=== PATIENT | female | born 1945 | race Caucasian/White ===

== ENCOUNTER → 2020-11-12 08:49 | Outpatient (CLI) | payer MEDICARE, SELFPAY ==
[2020-11-12] MEDS: COVID-19 VACC #1, MRNA(MOD) 100 MCG/0.5 ML VIAL IM (09:00)
== END ==
PROVIDERS: Family Provider Family Medicine; PCP Family Medicine; Visit Provider Internal Medicine
DX: Z23 Encounter for immunization (principal)
CPT/HCPCS: 0011A; 91301

== ENCOUNTER → 2020-12-10 08:55 | Outpatient (CLI) | payer MEDICARE, SELFPAY ==
[2020-12-10] MEDS: COVID-19 VACC #2, MRNA(MOD) 100 MCG/0.5 ML VIAL IM (09:02)
== END ==
PROVIDERS: PCP Family Medicine; Visit Provider Internal Medicine
DX: Z23 Encounter for immunization (principal)
CPT/HCPCS: 0012A; 91301

== ENCOUNTER → 2020-12-23 09:33 | Outpatient (CLI) | payer OTHER, SELFPAY ==
[2020-12-23 10:55] LABS: BUN Creatinine Ratio 15.4 (6-22); Blood Urea Nitrogen 19 mg/dL (7-17); Carbon Dioxide 27 mmol/L (22-32); Chloride 102 mmol/L (98-107); Estimated Glomerular Filt Rate 42.5 mL/min (>60); Glucose 96 mg/dL (80-110); HEMOLYSIS < 15 (0-50); Sodium 136 mmol/L (137-145)
[2020-12-23 10:59] LABS: Potassium 5.4 mmol/L (3.4-5.1)
== END ==
PROVIDERS: Referring Provider Physician Assistant; Visit Provider Physician Assistant
DX: I25.5 Ischemic cardiomyopathy (principal)
CPT/HCPCS: 36415; 80048

== ENCOUNTER → 2021-01-09 08:14 | Outpatient (CLI) | payer OTHER, SELFPAY ==
[2021-01-09 09:07] LABS: BUN Creatinine Ratio 15.9 (6-22); Blood Urea Nitrogen 20 mg/dL (7-17); Calcium 10.1 mg/dL (8.4-10.2); Carbon Dioxide 24 mmol/L (22-32); Chloride 102 mmol/L (98-107); Estimated Glomerular Filt Rate 41.3 mL/min (>60); Glucose 100 mg/dL (80-110); HEMOLYSIS < 15 (0-50); Sodium 136 mmol/L (137-145)
== END ==
PROVIDERS: Referring Provider Physician Assistant; Visit Provider Physician Assistant
DX: I25.5 Ischemic cardiomyopathy (principal)
CPT/HCPCS: 36415; 80048

== ENCOUNTER 2021-05-14 10:30 | Outpatient (RCR) | payer OTHER, SELFPAY | END 2021-05-14 12:30 | LOC: CAR 10:30 | PROVIDERS: Referring Provider Internal Medicine Interventional Cardiology; Visit Provider Internal Medicine Interventional Cardiology | DX: I50.22 Chronic systolic (congestive) heart failure (principal) | CPT/HCPCS: 93798 ==

== ENCOUNTER → 2021-05-18 09:53 | Outpatient (CLI) | payer OTHER, SELFPAY ==
[2021-05-18 10:31] LABS: Hemoglobin 13.4 g/dL (12.0-16.0); Mean Corpuscular HGB Conc 33.6 % (30-36); Mean Corpuscular Hemoglobin 28.5 PG (26-34); Mean Corpuscular Volume 84.9 fL (80-100); Platelet Count 204 X10^3/uL (150-400); Red Blood Cell Count 4.71 X10^6/uL (4.0-5.2); Red Cell Distribution Width 14.9 % (11.6-14.8); White Blood Cell Count 9.4 X10^3/uL (4.5-11.0)
[2021-05-18 10:42] LABS: Alanine Aminotransferase 16 IU/L (<35); Albumin 4.1 g/dL (3.5-5.0); Albumin Globulin Ratio 1.3 (1.0-2.8); Alkaline Phosphatase 133 U/L (38-126); Aspartate Aminotransferase 25 IU/L (14-36); BUN Creatinine Ratio 13.9 (6-22); Bilirubin Total 0.7 mg/dL (0.2-1.3); Blood Urea Nitrogen 16 mg/dL (7-17); Calcium 9.2 mg/dL (8.4-10.2); Carbon Dioxide 23 mmol/L (22-32); Chloride 106 mmol/L (98-107); Estimated Glomerular Filt Rate 45.8 mL/min (>60); Globulin 3.2 g/dL (1.7-4.1); Glucose 125 mg/dL (80-110); HEMOLYSIS < 15 (0-50); Potassium 4.1 mmol/L (3.4-5.1); Sodium 135 mmol/L (137-145); Total Protein 7.3 g/dL (6.3-8.2)
[2021-05-18 10:51] LABS: NT-proBNP (BNP-Adult 18+) 630 pg/mL (<450)
[2021-05-18 11:12] LABS: HEMOLYSIS < 15 (0-50); Iron 58 ug/dL (37-170)
[2021-05-18 11:17] LABS: Ferritin 21 ng/mL (11-264)
[2021-05-18 11:26] LABS: Percent Iron Saturation 21 % (15-50); Total Iron Binding Capacity 278 ug/dL (265-497); Transferrin 225 mg/dL (206-381)
[2021-05-18 11:31] LABS: Free T4, Direct Thyroxine 1.11 ng/dL (0.78-2.19)
[2021-05-18 11:44] LABS: Thyroid Stimulating Hormone 2.48 uIU/mL (0.47-4.68)
[2021-05-18 11:48] LABS: Folate 6.6 ng/mL (2.76-20.0); Vitamin B12 > 1000 pg/mL (239-931)
[2021-05-20 14:35] LABS: Immunoglobulin A, Serum 156 mg/dL (64-422); Immunoglobulin G,Serum 1361 mg/dL (586-1602); Immunoglobulin M, Serum 98 mg/dL (26-217)
== END ==
PROVIDERS: Referring Provider Internal Medicine Cardiovascular Disease; Visit Provider Internal Medicine Cardiovascular Disease
DX: R77.1 Abnormality of globulin (principal)
CPT/HCPCS: 36415; 80053; 82607; 82728; 82746; 82784; 83540; 83550; 83880; 84155; 84439; 84443; 85027; 86334

== ENCOUNTER 2021-06-18 17:09 | Emergency (ER) | payer OTHER, SELFPAY ==
[2021-06-18] VITALS (14 sets, daily range): BP systolic 140–191; BP diastolic 71–104; PULSE 65–101; RESP 14–35; TEMP 36.4; O2SAT 93–98; BMI 28.1
--- NOTE | 2021-06-18 17:14 | DI.RAD.S_ITS ---
PROCEDURE: XR CHEST 1V INDICATIONS: chest pain TECHNIQUE: One view of the chest was acquired. COMPARISON: [facility], , CHEST 2 VIEW, 12/19/2006, 10:58. FINDINGS: Surgical changes and devices: An AICD is seen. Left upper abdominal clips are seen. Coronary artery stents are faintly seen. Lungs and pleura: Lungs are clear. No pleural effusions or pneumothorax. Mediastinum: The cardiac contours are within normal limits. The aorta demonstrates calcification and tortuosity. Bones and chest wall: No suspicious bony lesions. Age-appropriate bony degenerative changes are seen. Overlying soft tissues appear unremarkable. IMPRESSION: No acute cardiopulmonary process is seen. Postoperative and degenerative changes are seen. Dictated by: Candido Tomas M.D. on 06/18/2021 at 16:57 Approved by: Candido Tomas M.D. on 06/18/2021 at 16:58
[2021-06-18 17:33] LABS: Add Manual Diff / Slide Review NO; Basophils Absolute Auto 100 /uL (0-100); Eosinophils Absolute Auto 600 /uL (0-450); Hemoglobin 12.8 g/dL (12.0-16.0); Lymphocytes Absolute Auto 2100 /uL (1100-4500); Lymphocytes Percent Auto 26.9 % (25-40); Mean Corpuscular HGB Conc 32.8 % (30-36); Mean Corpuscular Hemoglobin 27.5 PG (26-34); Mean Corpuscular Volume 83.9 fL (80-100); Monocytes Absolute Auto 1000 /uL (0-900); Monocytes Percent Auto 13.4 % (3-14); Neutrophils Absolute Auto 4000 /uL (1500-7000); Neutrophils Percent Auto 51.7 % (50-75); Platelet Count 218 X10^3/uL (150-400); Red Blood Cell Count 4.65 X10^6/uL (4.0-5.2); Red Cell Distribution Width 14.6 % (11.6-14.8); White Blood Cell Count 7.8 X10^3/uL (4.5-11.0)
[2021-06-18 17:41] LABS: Prothrombin Time 11.1 SECONDS (10.1-12.7)
[2021-06-18 17:44] LABS: PTT Partial Thromboplastin Tim 34 SECONDS (26.4-36.2)
[2021-06-18 17:45] LABS: Alanine Aminotransferase 64 IU/L (<35); Albumin 4.2 g/dL (3.5-5.0); Albumin Globulin Ratio 1.2 (1.0-2.8); Alkaline Phosphatase 146 U/L (38-126); Aspartate Aminotransferase 73 IU/L (14-36); BUN Creatinine Ratio 14.4 (6-22); Bilirubin Total 0.5 mg/dL (0.2-1.3); Blood Urea Nitrogen 17 mg/dL (7-17); Calcium 9.3 mg/dL (8.4-10.2); Carbon Dioxide 25 mmol/L (22-32); Chloride 104 mmol/L (98-107); Creatine Kinase 39 U/L (30-135); Estimated Glomerular Filt Rate 44.4 mL/min (>60); Globulin 3.5 g/dL (1.7-4.1); Glucose 99 mg/dL (80-110); HEMOLYSIS < 15 (0-50); Lipase 171 U/L (23-300); Sodium 137 mmol/L (137-145); Total Protein 7.7 g/dL (6.3-8.2)
[2021-06-18 17:57] LABS: NT-proBNP (BNP-Adult 18+) 1050 pg/mL (<450); Troponin I < 0.012 ng/mL (0.01-0.034)
[2021-06-18] MEDS: SODIUM CHLORIDE 0.9% 1,000 ML 150 ML IV (18:03)
--- NOTE | 2021-06-18 18:08 | ED.ARRPALP ---
HPI - Arrhythmia/Palpitations General Chief Complaint: Arrhythmia/Palpitations Stated Complaint: Cyanotic Time Seen by Provider: 06/18/21 17:45 History of Present Illness HPI narrative: 76-year-old female nonsmoker with history of coronary artery disease and multiple stents as well as the placement of a pacemaker about 1 month ago presents after an episode of dizziness and lightheaded which happened earlier tonight. She had been in her normal state of health until this afternoon when she stood up and went to the bathroom and felt dizzy, flushed, nauseated and perhaps a bit sweaty. Her symptoms lasted upwards of 10 minutes or so. She denies any chest pain or palpitations. She has had no nausea or vomiting. She denies any diarrhea. She denies any specific medication or dietary change. She feels much better on arrival here. Related Data Home Medications Medication Instructions Recorded Confirmed aspirin 81 mg tablet,delayed 81 mg PO DAILY 06/18/21 06/18/21 release atorvastatin 80 mg tablet 80 mg PO BEDTIME 06/18/21 06/18/21 carvedilol 25 mg tablet 25 mg PO BID 06/18/21 06/18/21 cholecalciferol (vitamin D3) 50 50 mcg PO DAILY 06/18/21 06/18/21 mcg (2,000 unit) capsule clopidogrel 75 mg tablet 75 mg PO DAILY 06/18/21 06/18/21 irbesartan 75 mg tablet 37.5 mg PO DAILY 06/18/21 06/18/21 nitroglycerin 0.4 mg sublingual 0.4 mg SUBLINGUAL PRN PRN 06/18/21 06/18/21 tablet nortriptyline 10 mg capsule 10 mg PO DAILY 06/18/21 06/18/21 pantoprazole 40 mg tablet,delayed 40 mg PO DAILY 06/18/21 06/18/21 release (Protonix) paroxetine HCl 10 mg tablet 10 mg PO DAILY 06/18/21 06/18/21 Allergies Allergy/AdvReac Type Severity Reaction Status Date / Time IBUPROFEN Allergy Severe HIVES Uncoded 11/16/17 13:11 Review of Systems Review of Systems Narrative: GENERAL: See HPI HEENT: Denies sinus pain, ear pain, sore throat, difficulty swallowing, dizziness. RESPIRATORY: See HPI CARDIOVASCULAR: See HPI, GASTROINTESTINAL: Denies nausea, vomiting, abdominal pain, diarrhea, constipation, melena. : Denies dysuria, frequency, incontinence, hematuria, urinary retention. MUSCULOSKELETAL: denies weakness, joint pain, or bony pain SKIN: Denies rash, skin lesions, or other NEUROLOGIC: Denies weakness, headache, numbness, change in speech, confusion, seizures, incoordination. PSYCHIATRIC: No concerning psychosocial issues. 12 point review of systems is negative except for those stated above Exam Narrative Exam Narrative: GENERAL: [76] year old patient appears stated age. Well-developed patient, in mild distress. HEAD: Atraumatic. Normocephalic. EYES: Pupils equal round and reactive. Extraocular motions intact. No scleral icterus. No injection or drainage. ENT: Nose without bleeding, purulent drainage. Throat without erythema, tonsillar hypertrophy or exudate. Airway patent. NECK: Trachea midline. Non tender CARDIOVASCULAR: Regular rate and rhythm without murmurs, gallops, or rubs. Left anterior chest incision is clean, dry and intact with no signs of erythema, warmth, tenderness, induration, fluctuance or signs of infection RESPIRATORY: Clear to auscultation. Breath sounds equal bilaterally. No wheezes, rales, or rhonchi. GASTROINTESTINAL: Abdomen soft, non-tender, nondistended. EXTREMITIES: No edema or joint tenderness. BACK: Nontender without deformity or crepitance. No flank tenderness. NEURO: AOx3. SKIN: No rash or erythema of visible areas Initial Vital Signs Initial Vital Signs: Vital Signs Temperature 97.5 F L 06/18/21 17:19 Pulse Rate 68 06/18/21 17:19 Respiratory Rate 16 06/18/21 17:19 Blood Pressure 191/104 H 06/18/21 17:19 Pulse Oximetry 98 06/18/21 17:19 Course Course Course Narrative: Pacemaker interrogated and no abnormal rates noted Orders Ordered: ED Orders 06/18/21 17:14 XR chest 1V Stat EKG-12 Lead Stat 06/18/21 17:24 Complete Blood Count AUTO DIFF Stat Comprehensive Metabolic Panel Stat Lipase Stat NT-proBNP (BNP-Adult 18+) Stat Partial Thromboplastin Time Stat Prothrombin Time INR Stat Troponin & CK Cardiac Panel Stat 06/18/21 19:27 CT angio chest PE protocol Stat 06/18/21 19:50 Troponin & CK Cardiac Panel Stat Discontinued Medications Sodium Chloride (Normal Saline 0.9%) 1,000 mls @ 150 mls/hr IV CONT TAMMY Last Admin: 06/18/21 18:03 Dose: 150 mls/hr Documented by: LLOYD Reevaluation(s) Reevaluation #1: Patient continued to feel largely asymptomatic, she is ambulating to and from the bathroom, she denies dizziness or lightheadedness. She is no longer flushed or nauseated Vital Signs Vital signs: Vital Signs - 8 hr 06/18/21 19:00 06/18/21 19:30 06/18/21 20:00 Pulse Rate 65 68 71 Pulse Rate [Orthostatic Lying] Pulse Rate [Orthostatic Sitting] Pulse Rate [Orthostatic Standing] Respiratory Rate 21 17 14 Blood Pressure 145/72 H 148/71 H Blood Pressure [Orthostatic Lying] Blood Pressure [Orthostatic Sitting] Blood Pressure [Orthostatic Standing] Pulse Oximetry 94 95 97 06/18/21 20:30 06/18/21 20:52 06/18/21 20:53 Pulse Rate 71 74 77 Pulse Rate [Orthostatic Lying] Pulse Rate [Orthostatic Sitting] Pulse Rate [Orthostatic Standing] Respiratory Rate 16 35 H 32 H Blood Pressure 156/72 H 144/78 H Blood Pressure [Orthostatic Lying] Blood Pressure [Orthostatic Sitting] Blood Pressure [Orthostatic Standing] Pulse Oximetry 96 97 96 06/18/21 20:54 06/18/21 20:57 06/18/21 21:00 Pulse Rate 77 101 H Pulse Rate [Orthostatic Lying] 71 Pulse Rate [Orthostatic Sitting] 78 Pulse Rate [Orthostatic Standing] 77 Respiratory Rate 21 Blood Pressure 140/75 Blood Pressure [Orthostatic Lying] 156/72 H Blood Pressure [Orthostatic Sitting] 144/78 H Blood Pressure [Orthostatic Standing] 140/75 Pulse Oximetry 97 93 06/18/21 21:02 06/18/21 21:20 06/18/21 21:22 Pulse Rate 88 70 Pulse Rate [Orthostatic Lying] Pulse Rate [Orthostatic Sitting] Pulse Rate [Orthostatic Standing] Respiratory Rate Blood Pressure 143/86 H Blood Pressure [Orthostatic Lying] Blood Pressure [Orthostatic Sitting] Blood Pressure [Orthostatic Standing] Pulse Oximetry 96 96 MDM - Arrhythmia/Palpitations Lab Data Result diagrams: 06/18/21 17:24 06/18/21 17:24 Labs: Lab Results 06/18/21 06/18/21 06/18/21 Range/Units 17:24 17:24 17:24 WBC 7.8 (4.5-11.0) X10^3/uL RBC 4.65 (4.0-5.2) X10^6/uL Hgb 12.8 (12.0-16.0) g/dL Hct 39.0 (36-46) % MCV 83.9 (80-100) fL MCH 27.5 (26-34) PG MCHC 32.8 (30-36) % RDW 14.6 (11.6-14.8) % Plt Count 218 (150-400) X10^3/uL Neut % (Auto) 51.7 (50-75) % Lymph % (Auto) 26.9 (25-40) % Roberts % (Auto) 13.4 (3-14) % Eos % (Auto) 7.0 H (2-4) % Baso % (Auto) 1.0 (0-2) % Neut # (Auto) 4000 (0826-0736) /uL Lymph # (Auto) 2100 (2967-7522) /uL Roberts # (Auto) 1000 H (0-900) /uL Eos # (Auto) 600 H (0-450) /uL Baso # (Auto) 100 (0-100) /uL PT 11.1 (10.1-12.7) SECONDS INR 1.0 (0.9-1.3) APTT 34 (26.4-36.2) SECONDS Sodium 137 (137-145) mmol/L Potassium 4.0 (3.4-5.1) mmol/L Chloride 104 (98-107) mmol/L Carbon Dioxide 25 (22-32) mmol/L BUN 17 (7-17) mg/dL Creatinine 1.18 H (0.52-1.04) mg/dL Estimated GFR 44.4 L (>60) mL/min BUN/Creatinine Ratio 14.4 (6-22) Glucose 99 (80-110) mg/dL Calcium 9.3 (8.4-10.2) mg/dL Total Bilirubin 0.5 (0.2-1.3) mg/dL AST 73 H (14-36) IU/L ALT 64 H (<35) IU/L Alkaline Phosphatase 146 H (38-126) U/L Total Creatine Kinase 39 (30-135) U/L CK-MB (CK-2) TNP CK-MB (CK-2) Rel Index TNP Troponin I < 0.012 (0.01-0.034) ng/mL NT-Pro-B Natriuret Pep 1050 H (<450) pg/mL Total Protein 7.7 (6.3-8.2) g/dL Albumin 4.2 (3.5-5.0) g/dL Globulin 3.5 (1.7-4.1) g/dL Albumin/Globulin Ratio 1.2 (1.0-2.8) Lipase 171 (23-300) U/L 06/18/21 Range/Units 19:50 WBC (4.5-11.0) X10^3/uL RBC (4.0-5.2) X10^6/uL Hgb (12.0-16.0) g/dL Hct (36-46) % MCV (80-100) fL MCH (26-34) PG MCHC (30-36) % RDW (11.6-14.8) % Plt Count (150-400) X10^3/uL Neut % (Auto) (50-75) % Lymph % (Auto) (25-40) % Roberts % (Auto) (3-14) % Eos % (Auto) (2-4) % Baso % (Auto) (0-2) % Neut # (Auto) (9773-6501) /uL Lymph # (Auto) (6067-0279) /uL Roberts # (Auto) (0-900) /uL Eos # (Auto) (0-450) /uL Baso # (Auto) (0-100) /uL PT (10.1-12.7) SECONDS INR (0.9-1.3) APTT (26.4-36.2) SECONDS Sodium (137-145) mmol/L Potassium (3.4-5.1) mmol/L Chloride (98-107) mmol/L Carbon Dioxide (22-32) mmol/L BUN (7-17) mg/dL Creatinine (0.52-1.04) mg/dL Estimated GFR (>60) mL/min BUN/Creatinine Ratio (6-22) Glucose (80-110) mg/dL Calcium (8.4-10.2) mg/dL Total Bilirubin (0.2-1.3) mg/dL AST (14-36) IU/L ALT (<35) IU/L Alkaline Phosphatase (38-126) U/L Total Creatine Kinase 32 (30-135) U/L CK-MB (CK-2) TNP CK-MB (CK-2) Rel Index TNP Troponin I < 0.012 (0.01-0.034) ng/mL NT-Pro-B Natriuret Pep (<450) pg/mL Total Protein (6.3-8.2) g/dL Albumin (3.5-5.0) g/dL Globulin (1.7-4.1) g/dL Albumin/Globulin Ratio (1.0-2.8) Lipase (23-300) U/L Imaging Data CT scan - chest: Radiologist's Impresson: [address] [id number] Scan ReportSigned Patient: Maci Shields LMR#: [id number]: 4Acct:[id number]/Sex: 76 / FDate of Service: 06/18/21Loc: EDAccession Number: [id number] Procedure: CT angio chest PE protocol Ordering Provider: Geroge Koehler D.O. PROCEDURE: CT ANGIO CHEST PE PROTOCOL INDICATIONS: near syncope, recent cardiac procedure TECHNIQUE: After the administration of intravenous contrast, 2 mm thick sections acquired from the pulmonary apices to the posterior costophrenic angles. 3-dimensional maximum intensity projection (MIP) coronal and sagittal reformats were then acquired through the thorax. For radiation dose reduction, the following was used: automated exposure control, adjustment of mA and/or kV according to patient size. COMPARISON: None. FINDINGS: Lungs: Scattered subsegmental atelectasis and/or scarring. No focal consolidation. Airway thickening in keeping with nonspecific bronchitis and/or reactive airways disease. Pleura: No pleural effusion or pneumothorax. Heart: Enlarged. No pericardial effusion. Coronary atherosclerosis. Chest nodes: Normal. Thyroid gland: Unremarkable Aorta: Normal in size. Pulmonary arteries: No intraluminal filling defects identified. Esophagus: Normal. Upper abdomen and chest wall: No significant findings. Bones: No compression fracture. Diffuse spondylitic changes and facet arthropathy. IMPRESSION: No evidence of pulmonary embolism. No aortic dissection identified. Scattered subsegmental atelectasis and/or scarring. No focal consolidation. Dictated by: Abdelrahman Montez M.D. on 06/18/2021 at 20:14 Approved by: Abdelrahman Montez M.D. on 06/18/2021 at 20:18 ECG Data Interpretation: Sinus rhythm, no signs of ectopy. No ST segmental elevation or depression. MDM Narrative Medical decision making narrative: Patient had episode of near-syncope after changing position earlier tonight, symptoms resolved prior to her arrival. No evidence of ischemia, EKG is nonocclusive and multiple troponins are negative. Other considerations include dehydration, electrolyte abnormality. CT angiogram ordered given increased risk of pulmonary embolism after recent interventions and hospitalization as well as evaluation of potential vascular injury as a consequence of her pacemaker placement. No pericardial effusion or other abnormality noted. Patient given return precautions and questions have been answered to her apparent satisfaction Discharge Plan Departure Patient Disposition: Home Clinical Impression: Near syncope Instructions: DI for Syncope in Adults (Fainting) Activity Restrictions/Additional Instructions: *You have been diagnosed with [near syncope. Your history, physical exam, labs and CT scan are very reassuring. There is no evidence of heart attack, abnormality with your pacemaker, blood clot or other concerning symptoms that we discussed. *What to do: *Please continue to take your regular medications as directed. [ ] New medication prescriptions sent to your pharmacy: [ ] [ ] New medication written as a paper prescription [x ] No new medications given *Please follow up with your primary care provider in 2-3 days, call for an appointment. Let them know you were seen in the Emergency Department and that we ask that you be seen in follow up. We will electronically transmit a record of today's note if your PCP is in our system *If you do not have a primary care provider please contact the [facility] Resource line at [phone]. They will ask some questions about your medical history and help get you set up with a doctor in the community. *Return to Emergency Department if you should have any new, worsening or concerning symptoms, such as [fever greater than 101 F, shaking chills, worsening pain, persistent vomiting or other bothersome symptoms] Prescriptions: No Action atorvastatin 80 mg tablet 80 mg PO BEDTIME RF: 0 carvedilol 25 mg Tablet 25 mg PO BID RF: 0 paroxetine HCl 10 mg Tablet 10 mg PO DAILY RF: 0 clopidogrel 75 mg Tablet 75 mg PO DAILY RF: 0 aspirin [Aspir-81] 81 mg Tablet,Delayed Release (Dr/Ec) 81 mg PO DAILY RF: 0 pantoprazole [Protonix] 40 mg Tablet,Delayed Release (Dr/Ec) 40 mg PO DAILY RF: 0 nortriptyline 10 mg Capsule 10 mg PO DAILY RF: 0 nitroglycerin 0.4 mg Tablet, Sublingual 0.4 mg sublingual PRN PRN (Reason: Chest Pain) RF: 0 irbesartan 75 mg Tablet 37.5 mg PO DAILY RF: 0 cholecalciferol (vitamin D3) 50 mcg (2,000 unit) Capsule 50 mcg PO DAILY RF: 0 Referrals: JEFFERSON JOHNSON [Other]
--- NOTE | 2021-06-18 19:05 | PC.NURSE ---
interrogated pacemaker.
--- NOTE | 2021-06-18 19:08 | PC.NURSE ---
pt states that all of a sudden she got diaphoretic, cyanotic lips. light headed and dizzy. daughter was with patient. pt had a recent defib placement. reports it is her 3rd defib.. steri strips in place over defib site.
--- NOTE | 2021-06-18 19:27 | DI.CT.S_ITS ---
PROCEDURE: CT ANGIO CHEST PE PROTOCOL INDICATIONS: near syncope, recent cardiac procedure TECHNIQUE: After the administration of intravenous contrast, 2 mm thick sections acquired from the pulmonary apices to the posterior costophrenic angles. 3-dimensional maximum intensity projection (MIP) coronal and sagittal reformats were then acquired through the thorax. For radiation dose reduction, the following was used: automated exposure control, adjustment of mA and/or kV according to patient size. COMPARISON: None. FINDINGS: Lungs: Scattered subsegmental atelectasis and/or scarring. No focal consolidation. Airway thickening in keeping with nonspecific bronchitis and/or reactive airways disease. Pleura: No pleural effusion or pneumothorax. Heart: Enlarged. No pericardial effusion. Coronary atherosclerosis. Chest nodes: Normal. Thyroid gland: Unremarkable Aorta: Normal in size. Pulmonary arteries: No intraluminal filling defects identified. Esophagus: Normal. Upper abdomen and chest wall: No significant findings. Bones: No compression fracture. Diffuse spondylitic changes and facet arthropathy. IMPRESSION: No evidence of pulmonary embolism. No aortic dissection identified. Scattered subsegmental atelectasis and/or scarring. No focal consolidation. Dictated by: Abdelrahman Montez M.D. on 06/18/2021 at 20:14 Approved by: Abdelrahman Montez M.D. on 06/18/2021 at 20:18
[2021-06-18 20:07] LABS: Creatine Kinase 32 U/L (30-135)
[2021-06-18 20:20] LABS: Troponin I < 0.012 ng/mL (0.01-0.034)
== END 2021-06-18 21:32 | disposition home or self-care (01) ==
PROVIDERS: Emergency Medicine; Emergency Provider Emergency Medicine
DX: R55 Syncope and collapse (principal); Z95.0 Presence of cardiac pacemaker
CPT/HCPCS: 36415; 71045; 71275; 80053; 82550; 83690; 83880; 84484; 85025; 85610; 85730; 93005; 93010; 99284; 99285; Q9967

== ENCOUNTER 2021-09-11 17:40 | Emergency (ER) | payer OTHER, SELFPAY ==
[2021-09-11 17:41] VITALS: BP 175/100; PULSE 75; RESP 23; TEMP 35.5; O2SAT 96; BMI 27.9
--- NOTE | 2021-09-11 17:46 | DI.RAD.S_ITS ---
PROCEDURE: XR CHEST 1V INDICATIONS: chest pain TECHNIQUE: One view of the chest was acquired. COMPARISON: [facility], CR, XR CHEST 1V, 06/18/2021, 17:40. FINDINGS: Surgical changes and devices: Left dual-chamber pacemaker/defibrillator present. Lungs and pleura: Lungs are clear. No pleural effusions or pneumothorax. Mediastinum: Heart size is enlarged. No vascular congestion present. Coronary artery vascular stents noted. Bones and chest wall: No suspicious bony lesions. Overlying soft tissues appear unremarkable. IMPRESSION: Cardiomegaly without vascular congestion. Approved by: Jose L Matos M.D. on 09/11/2021 at 17:34
[2021-09-11] MEDS: ASPIRIN 81 MG CHEW TAB 324 MG PO (17:57)
[2021-09-11] MEDS: NITROGLYCERIN 0.4 MG SL TAB SL ×2 (18:01→18:06)
--- NOTE | 2021-09-11 18:02 | ED_ITS ---
HPI - Chest Pain General Chief Complaint: Chest Pain Stated Complaint: Possible Heart Attack Time Seen by Provider: 09/11/21 17:53 Mode of arrival: Wheelchair Limitations: no limitations History of Present Illness HPI narrative: Patient is a 76-year-old female who has history of coronary artery disease least 12 stents hyperlipidemia hypertension presenting today with diaphoresis and chest pressure similar to her previous MIs. She said yesterday in cardiac rehab she did not feel great and noted that her blood pressure was high. She took blood pressure medication today and monitor did today blood pressure was controlled however she got up to go to dinner she had extremely diaphoretic and feeling chest pressure. She says it is nonradiating but does feel some tingling down her legs. She took 1 nitro at home it does seem to help. She does have some EKG changes noted in anterior leads. She is followed by Dr. Hampton cardiology with [facility]. Related Data Home Medications Medication Instructions Recorded Confirmed aspirin 81 mg tablet,delayed 81 mg PO DAILY 06/18/21 06/18/21 release atorvastatin 80 mg tablet 80 mg PO BEDTIME 06/18/21 06/18/21 carvedilol 25 mg tablet 25 mg PO BID 06/18/21 06/18/21 cholecalciferol (vitamin D3) 50 50 mcg PO DAILY 06/18/21 06/18/21 mcg (2,000 unit) capsule clopidogrel 75 mg tablet 75 mg PO DAILY 06/18/21 06/18/21 irbesartan 75 mg tablet 37.5 mg PO DAILY 06/18/21 06/18/21 nitroglycerin 0.4 mg sublingual 0.4 mg SUBLINGUAL PRN PRN 06/18/21 06/18/21 tablet nortriptyline 10 mg capsule 10 mg PO DAILY 06/18/21 06/18/21 pantoprazole 40 mg tablet,delayed 40 mg PO DAILY 06/18/21 06/18/21 release (Protonix) paroxetine HCl 10 mg tablet 10 mg PO DAILY 06/18/21 06/18/21 Allergies Allergy/AdvReac Type Severity Reaction Status Date / Time IBUPROFEN Allergy Severe HIVES Uncoded 11/16/17 13:11 Review of Systems Review of Systems Narrative: GENERAL: Denies chills, fatigue, malaise, fever, sweats, travel HEENT: Denies sinus pain, ear pain, sore throat, difficulty swallowing, neck pain RESPIRATORY: Denies dyspnea, cough, wheezing, hemoptysis, sputum. CARDIOVASCULAR: See HPI GASTROINTESTINAL: Denies nausea, vomiting, abdominal pain, diarrhea, constipation, melena. : Denies dysuria, frequency, incontinence, hematuria, urinary retention, flank pain. MUSCULOSKELETAL: Denies weakness, joint pain, or bony pain SKIN: No rash, no erythema, no pruritus NEUROLOGIC: Denies weakness, dizziness, headache, numbness, change in speech, confusion PSYCHIATRIC: No concerning psychosocial issues. 12 point review of systems is negative except for those stated above and HPI Patient History Medical History (Updated 09/11/21 @ 23:42 by Shannon Erickson DO) Coronary artery disease Hyperlipidemia Hypertension Social History Smoking Status: Former smoker Smoking Status: Former smoker alcohol intake frequency: holidays/special occasions only Substance Use Type: marijuana Exam Initial Vital Signs Initial Vital Signs: Vital Signs Temperature 96 F L 09/11/21 17:41 Pulse Rate 75 09/11/21 17:41 Respiratory Rate 23 09/11/21 17:41 Blood Pressure 175/100 H 09/11/21 17:41 Pulse Oximetry 96 09/11/21 17:41 GENERAL: Alert 76-year-old female diaphoretic flushed appears uncomfortable HEENT: Head atraumatic,EOMI, pupils reactive, face symmetric, [moist] mucous m embranes CARDIOVASCULAR: Regular rate and rhythm without murmurs, rubs or gallops. RESPIRATORY: Breath sounds equal bilaterally, no wheezes rales or rhonchi. ABDOMEN: Soft, nontender. Normoactive bowel sounds all 4 quadrants. No guarding or rebound. EXTREMITIES: Normal range of motion, no clubbing or edema. Neurovascularly intact NEUROLOGICAL: Alert and oriented x4.Normal gait and speech. SKIN: Warm, dry, no laceration, no petechiae, no rashes or lesions. Course Orders Ordered: ED Orders 09/11/21 17:45 Complete Blood Count AUTO DIFF Stat Comprehensive Metabolic Panel Stat Lipase Stat Magnesium Stat PT [Prothrombin Time INR] Stat PTT [Partial Thromboplastin Time] Stat Troponin & CK Cardiac Panel Stat 09/11/21 17:46 XR chest 1V Stat EKG-12 Lead Routine 09/11/21 18:03 EKG-12 Lead Stat 09/11/21 18:13 COVID19 -Nasal swab/Pre-Proc Stat Discontinued Medications Aspirin (Aspirin 81 Mg Chew Tab) 324 mg PO NOW ONE Stop: 09/11/21 17:47 Last Admin: 09/11/21 17:57 Dose: 243 mg Documented by: MICHAEL Aspirin (Aspirin 81 Mg Chew Tab) 324 mg PO NOW ONE Stop: 09/11/21 17:54 Last Admin: 09/11/21 17:58 Dose: Not Given Documented by: MICHAEL Heparin Sodium (Porcine) (Heparin 5,000 Unit/Ml Vial) 4,000 unit IV NOW ONE Stop: 09/11/21 18:01 Last Admin: 09/11/21 18:04 Dose: 4,000 unit Documented by: MICHAEL Sodium Chloride (Normal Saline 0.9%) 1,000 mls @ 150 mls/hr IV CONT [facility] Last Infusion: 09/11/21 18:27 Dose: 0 mls/hr Documented by: Admin: 09/11/21 18:03 Dose: 150 mls/hr Documented by: MICHAEL Heparin Sodium/Dextrose (Heparin Drip) 25,000 unit in 500 mls @ 20 mls/hr IV CONT TAMMY; Protocol Last Titration: 09/11/21 18:27 Dose: 0 units/hr, 0 mls/hr Documented by: Admin: 09/11/21 18:05 Dose: 1,000 units/hr, 20 mls/hr Documented by: MICHAEL Metoprolol Tartrate (Metoprolol Tartrate 5 Mg/5 Ml Inj) 5 mg IV Q5M TAMMY Stop: 09/11/21 18:11 Last Admin: 09/11/21 18:27 Dose: Not Given Documented by: Admin: 09/11/21 18:27 Dose: Not Given Documented by: Admin: 09/11/21 18:07 Dose: 5 mg Documented by: MICHAEL Nitroglycerin (Nitroglycerin Oint 1 Inch/Gm Oint...G.) 1 inch TOP NOW ONE Stop: 09/11/21 17:54 Last Admin: 09/11/21 17:58 Dose: Not Given Documented by: MICHAEL Nitroglycerin (Nitroglycerin 0.4 Mg Sl Tab) 0.4 mg SL [id number] PRN PRN Reason: Chest Pain Last Admin: 09/11/21 18:06 Dose: 0.4 mg Documented by: Admin: 09/11/21 18:01 Dose: 0.4 mg Documented by: MICHAEL Vital Signs Vital signs: Vital Signs - 8 hr 09/11/21 17:41 09/11/21 18:07 09/11/21 18:10 Temperature 96 F L Pulse Rate 75 71 69 Respiratory Rate 23 20 19 Blood Pressure 175/100 H 152/89 H 137/71 Pulse Oximetry 96 93 94 09/11/21 18:13 09/11/21 18:16 Temperature 98.2 F Pulse Rate 62 61 Respiratory Rate 25 H 16 Blood Pressure 104/64 135/69 Pulse Oximetry 93 93 MDM - Chest Pain Lab Data Result diagrams: 09/11/21 17:45 09/11/21 17:45 Labs: Lab Results 09/11/21 09/11/21 09/11/21 Range/Units 17:45 17:45 17:45 WBC 11.7 H (4.5-11.0) X10^3/uL RBC 5.20 (4.0-5.2) X10^6/uL Hgb 13.6 (12.0-16.0) g/dL Hct 40.3 (36-46) % MCV 77.5 L (80-100) fL MCH 26.1 (26-34) PG MCHC 33.7 (30-36) % RDW 16.1 H (11.6-14.8) % Plt Count 264 (150-400) X10^3/uL Neut % (Auto) 47.7 L (50-75) % Lymph % (Auto) 32.7 (25-40) % Green % (Auto) 13.4 (3-14) % Eos % (Auto) 4.8 H (2-4) % Baso % (Auto) 1.4 (0-2) % Neut # (Auto) 5600 (3105-1661) /uL Lymph # (Auto) 3800 (4143-6438) /uL Green # (Auto) 1600 H (0-900) /uL Eos # (Auto) 600 H (0-450) /uL Baso # (Auto) 200 H (0-100) /uL PT 11.3 (10.1-12.7) SECONDS INR 1.0 (0.9-1.3) APTT 33 (26.4-36.2) SECONDS Sodium 135 L (137-145) mmol/L Potassium 4.1 (3.4-5.1) mmol/L Chloride 105 (98-107) mmol/L Carbon Dioxide 27 (22-32) mmol/L BUN 20 H (7-17) mg/dL Creatinine 1.02 (0.52-1.04) mg/dL Estimated GFR 52.5 L (>60) mL/min BUN/Creatinine Ratio 19.6 (6-22) Glucose 88 (80-110) mg/dL Calcium 9.9 (8.4-10.2) mg/dL Magnesium 1.9 (1.6-2.3) mg/dL Total Bilirubin 0.8 (0.2-1.3) mg/dL AST 28 (14-36) IU/L ALT 14 (<35) IU/L Alkaline Phosphatase 110 (38-126) U/L Total Creatine Kinase 38 (30-135) U/L CK-MB (CK-2) TNP CK-MB (CK-2) Rel Index TNP Troponin I < 0.012 (0.01-0.034) ng/mL Total Protein 7.8 (6.3-8.2) g/dL Albumin 4.1 (3.5-5.0) g/dL Globulin 3.7 (1.7-4.1) g/dL Albumin/Globulin Ratio 1.1 (1.0-2.8) Lipase 59 (23-300) U/L SARS-CoV-2 (PCR) (Negative) 09/11/21 Range/Units 18:13 WBC (4.5-11.0) X10^3/uL RBC (4.0-5.2) X10^6/uL Hgb (12.0-16.0) g/dL Hct (36-46) % MCV (80-100) fL MCH (26-34) PG MCHC (30-36) % RDW (11.6-14.8) % Plt Count (150-400) X10^3/uL Neut % (Auto) (50-75) % Lymph % (Auto) (25-40) % Green % (Auto) (3-14) % Eos % (Auto) (2-4) % Baso % (Auto) (0-2) % Neut # (Auto) (6312-5411) /uL Lymph # (Auto) (5803-9874) /uL Green # (Auto) (0-900) /uL Eos # (Auto) (0-450) /uL Baso # (Auto) (0-100) /uL PT (10.1-12.7) SECONDS INR (0.9-1.3) APTT (26.4-36.2) SECONDS Sodium (137-145) mmol/L Potassium (3.4-5.1) mmol/L Chloride (98-107) mmol/L Carbon Dioxide (22-32) mmol/L BUN (7-17) mg/dL Creatinine (0.52-1.04) mg/dL Estimated GFR (>60) mL/min BUN/Creatinine Ratio (6-22) Glucose (80-110) mg/dL Calcium (8.4-10.2) mg/dL Magnesium (1.6-2.3) mg/dL Total Bilirubin (0.2-1.3) mg/dL AST (14-36) IU/L ALT (<35) IU/L Alkaline Phosphatase (38-126) U/L Total Creatine Kinase (30-135) U/L CK-MB (CK-2) CK-MB (CK-2) Rel Index Troponin I (0.01-0.034) ng/mL Total Protein (6.3-8.2) g/dL Albumin (3.5-5.0) g/dL Globulin (1.7-4.1) g/dL Albumin/Globulin Ratio (1.0-2.8) Lipase (23-300) U/L SARS-CoV-2 (PCR) Negative (Negative) Point of Care Testing Glucose POC 62 Imaging Data Chest x-ray: Radiologist's Impression: PROCEDURE:? XR CHEST 1V ? INDICATIONS:? chest pain ? TECHNIQUE:? One view of the chest was acquired.? ? COMPARISON:? [facility], CR, XR CHEST 1V, 06/18/2021, 17:40. ? FINDINGS:? ? Surgical changes and devices:? Left dual-chamber pacemaker/defibrillator present. ? Lungs and pleura:? Lungs are clear.? No pleural effusions or pneumothorax.? ? Mediastinum:? Heart size is enlarged.? No vascular congestion present.? Coronary artery vascular stents noted. ? Bones and chest wall:? No suspicious bony lesions.? Overlying soft tissues appear unremarkable.? ? IMPRESSION:? ? Cardiomegaly without vascular congestion.? ? ? Approved by: Jose L Matos M.D. on 09/11/2021 at 17:34? ECG Data Interpretation: EKG 1. Sinus rhythm rate 70 [place] interval 204 QRS 138 QTC is 486 biphasic T-waves noted in V2 slight ST elevation this appears little different than previous EKG EKG 2. Improved ST changes MDM Narrative Medical decision making narrative: Patient's symptoms are concerning for [place] she has significant coronary artery disease. She received nitroglycerin aspirin heparin and 1 dose of metoprolol. Chest pressure improved with 1 dose of nitro she overall looks better. Dr. Alfaro ED physician at [facility] as an updated patient's symptoms test results indicate happy to accept patient not EKGs have been faxed COVID pending Discharge Plan Departure Patient Disposition: [facility] Clinical Impression: ST elevation myocardial infarction (STEMI) Prescriptions: No Action atorvastatin 80 mg tablet 80 mg PO BEDTIME 0RF Label Comments: take 1 tablet by mouth every evening carvedilol 25 mg Tablet 25 mg PO BID 0RF paroxetine HCl 10 mg Tablet 10 mg PO DAILY 0RF clopidogrel 75 mg Tablet 75 mg PO DAILY 0RF aspirin [Aspir-81] 81 mg Tablet,Delayed Release (Dr/Ec) 81 mg PO DAILY 0RF pantoprazole [Protonix] 40 mg Tablet,Delayed Release (Dr/Ec) 40 mg PO DAILY 0RF nortriptyline 10 mg Capsule 10 mg PO DAILY 0RF nitroglycerin 0.4 mg Tablet, Sublingual 0.4 mg sublingual PRN PRN (Reason: Chest Pain) 0RF irbesartan 75 mg Tablet 37.5 mg PO DAILY 0RF Rx Instructions: take 1/2 tab PO QD cholecalciferol (vitamin D3) 50 mcg (2,000 unit) Capsule 50 mcg PO DAILY 0RF Referrals: Princess Bae MD [Primary Care Provider] - Jimmy Hollis MD [Non-Staff] -
[2021-09-11] MEDS: SODIUM CHLORIDE 0.9% 1,000 ML 150 ML IV (18:03)
[2021-09-11] MEDS: HEPARIN 5,000 UNIT/ML VIAL 4000 UNIT IV (18:04)
[2021-09-11] MEDS: HEPARIN DRIP 25,000 UNIT/500 ML IV.SOLN 20 UNIT IV (18:05)
[2021-09-11 18:06] LABS: Add Manual Diff / Slide Review NO; Basophils Absolute Auto 200 /uL (0-100); Basophils Percent Auto 1.4 % (0-2); Eosinophils Absolute Auto 600 /uL (0-450); Eosinophils Percent Auto 4.8 % (2-4); Hematocrit 40.3 % (36-46); Hemoglobin 13.6 g/dL (12.0-16.0); Lymphocytes Absolute Auto 3800 /uL (1100-4500); Lymphocytes Percent Auto 32.7 % (25-40); Mean Corpuscular HGB Conc 33.7 % (30-36); Mean Corpuscular Hemoglobin 26.1 PG (26-34); Mean Corpuscular Volume 77.5 fL (80-100); Monocytes Absolute Auto 1600 /uL (0-900); Monocytes Percent Auto 13.4 % (3-14); Neutrophils Absolute Auto 5600 /uL (1500-7000); Neutrophils Percent Auto 47.7 % (50-75); Platelet Count 264 X10^3/uL (150-400); Red Cell Distribution Width 16.1 % (11.6-14.8); White Blood Cell Count 11.7 X10^3/uL (4.5-11.0)
[2021-09-11 18:07] VITALS: BP 152/89; PULSE 71; RESP 20; O2SAT 93
[2021-09-11] MEDS: METOPROLOL TARTRATE 5 MG/5 ML INJ IV (18:07)
[2021-09-11 18:10] VITALS: BP 137/71; PULSE 69; RESP 19; O2SAT 94
[2021-09-11 18:13] VITALS: BP 104/64; PULSE 62; RESP 25; TEMP 36.8; O2SAT 93
[2021-09-11 18:14] LABS: Prothrombin Time 11.3 SECONDS (10.1-12.7)
[2021-09-11 18:16] VITALS: BP 135/69; PULSE 61; RESP 16; O2SAT 93
[2021-09-11 18:16] LABS: PTT Partial Thromboplastin Tim 33 SECONDS (26.4-36.2)
[2021-09-11 18:25] LABS: Alanine Aminotransferase 14 IU/L (<35); Albumin 4.1 g/dL (3.5-5.0); Albumin Globulin Ratio 1.1 (1.0-2.8); Alkaline Phosphatase 110 U/L (38-126); Aspartate Aminotransferase 28 IU/L (14-36); BUN Creatinine Ratio 19.6 (6-22); Bilirubin Total 0.8 mg/dL (0.2-1.3); Blood Urea Nitrogen 20 mg/dL (7-17); Calcium 9.9 mg/dL (8.4-10.2); Carbon Dioxide 27 mmol/L (22-32); Chloride 105 mmol/L (98-107); Creatine Kinase 38 U/L (30-135); Estimated Glomerular Filt Rate 52.5 mL/min (>60); Globulin 3.7 g/dL (1.7-4.1); Glucose 88 mg/dL (80-110); HEMOLYSIS 16 (0-50); Lipase 59 U/L (23-300); Magnesium 1.9 mg/dL (1.6-2.3); Potassium 4.1 mmol/L (3.4-5.1); Sodium 135 mmol/L (137-145); Total Protein 7.8 g/dL (6.3-8.2)
--- NOTE | 2021-09-11 18:28 | PC.NURSE ---
EMS left with Heparin and normal saline infusing.
[2021-09-11 18:36] LABS: Troponin I < 0.012 ng/mL (0.01-0.034)
[2021-09-11 18:42] LABS: COVID19 -Nasal RAPID Negative (Negative)
== END 2021-09-11 18:28 | disposition short-term general hospital (02) ==
PROVIDERS: Emergency Medicine; Emergency Provider Emergency Medicine; PCP Internal Medicine
DX: I21.3 ST elevation (STEMI) myocardial infarction of unspecified site (principal); I10 Essential (primary) hypertension; Z95.0 Presence of cardiac pacemaker; Z20.822 Contact with and (suspected) exposure to COVID-19; Z87.891 Personal history of nicotine dependence
CPT/HCPCS: 36415; 71045; 80053; 82550; 82962; 83690; 83735; 84484; 85025; 85610; 85730; 87635; 93005; 93010; 96365; 99284; 99285; 99291; C9803; J1644

== ENCOUNTER 2022-02-03 10:15 | Outpatient (RCR) | payer OTHER, SELFPAY | END 2022-02-03 14:15 | LOC: CAR 10:15 | PROVIDERS: Referring Provider Internal Medicine Cardiovascular Disease; Visit Provider Internal Medicine Cardiovascular Disease | DX: Z95.5 Presence of coronary angioplasty implant and graft (principal) | CPT/HCPCS: 93798 ==

== ENCOUNTER → 2022-06-01 15:13 | Outpatient (CLI) | payer OTHER, SELFPAY ==
--- NOTE | 2022-06-01 | DI.CT.S_ITS ---
PROCEDURE: CT SINUS SCREEN WO CON INDICATIONS: CHRONIC PANSINUSITIS TECHNIQUE: Noncontrast 3.0 mm axial images acquired from the frontal sinuses to the mid-sella, with coronal and sagittal reformats. For radiation dose reduction, the following was used: automated exposure control, adjustment of mA and/or kV according to patient size. COMPARISON: None. FINDINGS: Paranasal sinuses are clear bilaterally. There is no sinus wall thickening, osteitis, or sclerosis to indicate chronic/recurrent sinusitis. Postsurgical changes of left maxillary sinus medial antrostomy and partial left middle nasal turbinate resection. No roz bullosa or Lenny cell. No significant nasal septal deviation. Left fovea ethmoidalis is asymmetrically elevated with respect to the right by approximately 2-3 millimeters. IMPRESSION: No findings of acute or chronic sinusitis. Postsurgical changes detailed above. Approved by: Taiwo Palomo M.D. on 06/02/2022 at 8:22
== END ==
PROVIDERS: PCP Physician Assistant; Referring Provider Otolaryngology; Visit Provider Otolaryngology
DX: J32.4 Chronic pansinusitis (principal)
CPT/HCPCS: 70486

== ENCOUNTER 2025-01-28 11:24 | Emergency (ER) | payer OTHER, SELFPAY ==
[2025-01-28] VITALS (65 sets, daily range): BP systolic 85–184; BP diastolic 52–129; PULSE 60–128; RESP 12–34; TEMP 29–36.6; O2SAT 88–99; BMI 24.0
--- NOTE | 2025-01-28 11:50 | EKG_ITS ---
[address] [address] Test Date: 2025-01-28 Pat Name: [facility] Department: Room: Gender: Female [employer]ician [employer] Equipment: ENA : 1945 Requested By: Order Number: [id number] Reading MD: Jaun Gee MD Measurements Intervals Gary Rate: 71 P: 27 IA: 192 QRS: -46 QRSD: 140 T: 240 QT: 460 QTc: 499 Interpretive Statements Normal sinus rhythm with sinus arrhythmia Left axis deviation Left ventricular hypertrophy with QRS widening ( R in aVL , Gaurang product ) T wave abnormality, consider inferolateral ischemia NO SIGNIFICANT CHANGE FROM PRIOR TRACING Electronically Signed On 01-28-2025 17:46:53 PDT by Jaun Gee MD
--- NOTE | 2025-01-28 11:50 | DI.RAD.S_ITS ---
PROCEDURE: XR CHEST 1V INDICATIONS: Chest Pain TECHNIQUE: One view of the chest was acquired. COMPARISON: [facility], CR, XR CHEST 1V, 09/11/2021, 18:01. [facility], CR, XR CHEST 1V, 06/18/2021, 17:40. FINDINGS: Surgical changes and devices: Left chest wall generator with cardiac leads. Lungs and pleura: Lungs are clear. No pleural effusions or pneumothorax. Mediastinum: Mediastinal contours appear normal. Heart size is normal. Bones and chest wall: No suspicious bony lesions. Overlying soft tissues appear unremarkable. IMPRESSION: No acute cardiopulmonary abnormality is seen. Dictated by: Phil Vallejo M.D. on 01/28/2025 at 13:24 Approved by: Phil Vallejo M.D. on 01/28/2025 at 13:24
[2025-01-28 12:54] LABS: INR 1.1 (0.9-1.3); Prothrombin Time 12.9 SECONDS (9.4-12.5)
[2025-01-28 12:56] LABS: PTT Partial Thromboplastin Tim 38 SECONDS (25.1-36.5)
[2025-01-28 13:01] LABS: Alanine Aminotransferase 16 IU/L (<35); Alkaline Phosphatase 113 U/L (38-126); Aspartate Aminotransferase 46 IU/L (14-36); BUN Creatinine Ratio 24.5 (6-22); Bilirubin Total 0.7 mg/dL (0.2-1.3); Blood Urea Nitrogen 26 mg/dL (7-17); Carbon Dioxide 17 mmol/L (22-32); Creatine Kinase 41 U/L (30-135); Estimated Glomerular Filt Rate 53 mL/min (>60)
[2025-01-28 13:13] LABS: NT-proBNP (BNP-Adult 18+) 2330 pg/mL (<450); Troponin I 0.056 ng/mL (0.01-0.034)
[2025-01-28 13:17] LABS: Albumin 4.5 g/dL (3.5-5.0); Albumin Globulin Ratio 1.2 (1.0-2.8); Calcium 9.8 mg/dL (8.4-10.2); Chloride 110 mmol/L (98-107); Globulin 3.7 g/dL (1.7-4.1); Glucose 194 mg/dL (70-99); HEMOLYSIS 31 (0-50); Lipase 557 U/L (23-300); Magnesium 1.8 mg/dL (1.6-2.3); Potassium 4.8 mmol/L (3.4-5.1); Sodium 138 mmol/L (137-145); Total Protein 8.2 g/dL (6.3-8.2)
[2025-01-28 13:30] LABS: Add Manual Diff / Slide Review NO; Basophils Absolute Auto 100 /uL (0-100); Basophils Percent Auto 0.3 % (0-2); Eosinophils Absolute Auto 0 /uL (0-450); Eosinophils Percent Auto 0.2 % (2-4); Hemoglobin 15.3 g/dL (12.0-16.0); Lymphocytes Absolute Auto 2700 /uL (1100-4500); Lymphocytes Percent Auto 12.9 % (25-40); Mean Corpuscular HGB Conc 33.9 % (30-36); Mean Corpuscular Hemoglobin 29.5 PG (26-34); Mean Corpuscular Volume 87.2 fL (80-100); Monocytes Absolute Auto 1200 /uL (0-900); Monocytes Percent Auto 5.9 % (3-14); Neutrophils Absolute Auto 16900 /uL (1500-7000); Neutrophils Percent Auto 80.7 % (50-75); Platelet Count 311 X10^3/uL (150-400); Red Blood Cell Count 5.16 X10^6/uL (4.0-5.2); Red Cell Distribution Width 14.1 % (11.6-14.8)
[2025-01-28] MEDS: SODIUM CHLORIDE 0.9% 1,000 ML 1000 ML IV (14:15)
[2025-01-28] MEDS: MORPHINE 4 MG/ML INJ IV (14:15)
[2025-01-28 14:32] LABS: Lactate (Lactic Acid) 3.1 mmol/L (0.7-2.1)
[2025-01-28 14:34] LABS: Procalcitonin 0.042 ng/mL (<0.5)
[2025-01-28 15:20] LABS: Adenovirus F 40/41 Not Detected (Not Detect); Astrovirus Not Detected (Not Detect); Campylobacter Not Detected (Not Detect); Clostridium difficile toxin AB Not Detected (Not Detect); Cryptosporidium Not Detected (Not Detect); Cyclospora cayetanensis Not Detected (Not Detect); Entamoeba histolytica Not Detected (Not Detect); Enteroaggregative E.coli Not Detected (Not Detect); Enteropathogenic E.coli Not Detected (Not Detect); Enterotoxigenic E.coli It/st Not Detected (Not Detect); Giardia lamblia Not Detected (Not Detect); Norovirus GI/GII Not Detected (Not Detect); Plesiomonsa shigelloides Not Detected (Not Detect); Rotavirus A Not Detected (Not Detect); Salmonella Not Detected (Not Detect); Sapovirus Not Detected (Not Detect); Shiga-like toxin-prod E.coli Not Detected (Not Detect); Shigella/Enteroinvasive E.coli Not Detected (Not Detect); Vibrio Not Detected (Not Detect); Vibrio cholerae Not Detected (Not Detect); Yersinia enterocolitica Not Detected (Not Detect)
--- NOTE | 2025-01-28 15:33 | ED.CHESTPAIN ---
HPI - Chest Pain <Sheela Yip, - Last Filed: 01/29/25 12:18> General Chief Complaint: Chest Pain Stated Complaint: chest pain w/ N/D Time Seen by Provider: 01/28/25 13:45 Source: patient and EMS Mode of arrival: EMS Limitations: no limitations Limitations: no limitations History of Present Illness HPI narrative: Back 76-year-old female history of coronary artery disease with 12 stents, dyslipidemia, hypertension, CHF who presents with complaint of epigastric pain little bit up into her chest. Patient states she was having nausea or vomiting as well as diarrhea for the last several days. She notes she was not taken her diuretics for at least several days. Patient states she thinks her symptoms are from eating too much sugar. She was states no fever. She does no shortness of breath. She states her pain has not changed location. Patient states that she takes Eliquis. Medication for hypertension, dyslipidemia states she does take diuretic. Notes of prior cardiac stents. Patient states former smoker, no regular alcohol uses marijuana no recreational drugs. Follows with Cardiology at [facility]. Had cardiac stents placed at Located within [facility] in [place]. Follows with Stephanie Hidalgo for primary care. Patient notes she is DNR/DNI. Related Data Home Medications ?Medication ?Instructions ?Recorded ?Confirmed aspirin 81 mg tablet,delayed 81 mg PO DAILY 06/18/21 06/18/21 release atorvastatin 80 mg tablet 80 mg PO BEDTIME cholesterol 06/18/21 06/18/21 carvedilol 25 mg tablet 25 mg PO BID 06/18/21 06/18/21 cholecalciferol (vitamin D3) 50 50 mcg PO DAILY 06/18/21 06/18/21 mcg (2,000 unit) capsule clopidogrel 75 mg tablet 75 mg PO DAILY 06/18/21 06/18/21 irbesartan 75 mg tablet 37.5 mg PO DAILY 06/18/21 06/18/21 nitroglycerin 0.4 mg sublingual 0.4 mg sublingual PRN PRN Chest 06/18/21 06/18/21 tablet Pain nortriptyline 10 mg capsule 10 mg PO DAILY 06/18/21 06/18/21 pantoprazole 40 mg tablet,delayed 40 mg PO DAILY 06/18/21 06/18/21 release (Protonix) paroxetine HCl 10 mg tablet 10 mg PO DAILY 06/18/21 06/18/21 Allergies Allergy/AdvReac Type Severity Reaction Status Date / Time IBUPROFEN Allergy Severe HIVES Uncoded 11/16/17 13:11 Review of Systems <Sheela Yip DO - Last Filed: 01/29/25 12:18> Review of Systems ROS Unobtainable: All systems reviewed & are unremarkable except as noted in HPI and below Patient History <Sheela Yip DO - Last Filed: 01/29/25 12:18> Medical History Hypertension Hyperlipidemia Coronary artery disease Social History Smoking Status: Former smoker Smoking Status: Former smoker alcohol intake frequency: holidays/special occasions only Exam <Sheela Yip DO - Last Filed: 01/29/25 12:18> Narrative Exam Narrative: GEN: Female, alert and oriented x 3, patient appears to be in moderate to severe distress. HEENT: Atraumatic, pupils are equal round reactive to light, extraocular movements are intact, nares are clear, there is no conjunctival pallor. Throat is clear without any exudates, erythema, tonsillar enlargement or uvular deviation HEART: Regular rate and rhythm without murmur, clicks, rubs. No carotid bruits, pulses are equal in upper and lower extremities. No edema bilateral lower extremities. LUNGS:Lungs clear to auscultation, no wheezes, rales, crackles, chest moves symmetrically, positive for tachypnea. Patient's speaks in full sentences but appears quite uncomfortable. ABD:bowel sounds normal, soft, non-tender, no guarding, rebound, rigidity, no masses noted, no hepatosplenomegaly :No CVA tenderness MSCL: Non-tender, no muscle atrophy, muscles strength 5/5 upper and lower extremities, full range of motion. NEURO:CN 2-12 intact, sensation normal. Initial Vital Signs Initial Vital Signs: Vital Signs Temperature 97.8 F 01/28/25 11:41 Pulse Rate 73 01/28/25 11:41 Respiratory Rate 18 01/28/25 11:41 Blood Pressure 184/129 H 01/28/25 11:41 Pulse Oximetry 96 01/28/25 11:41 Oxygen Delivery Method Room Air 01/28/25 11:41 <Tyrone Damon MD - Last Filed: 01/29/25 03:07> Initial Vital Signs Initial Vital Signs: Vital Signs Temperature 97.8 F 01/28/25 11:41 Pulse Rate 73 01/28/25 11:41 Respiratory Rate 18 01/28/25 11:41 Blood Pressure 184/129 H 01/28/25 11:41 Pulse Oximetry 96 01/28/25 11:41 Oxygen Delivery Method Room Air 01/28/25 11:41 Course <Sheela Yip DO - Last Filed: 01/29/25 12:18> Orders Ordered: Discontinued Medications Aspirin (Aspirin 81 Mg Chew Tab) 324 mg PO NOW ONE Stop: 01/28/25 11:51 Last Admin: 01/28/25 13:55 Dose: Not Given Documented By: LM Fentanyl (Fentanyl 100 Mcg/2 Ml Inj) 50 mcg IV NOW ONE Stop: 01/28/25 15:45 Last Admin: 01/28/25 18:52 Dose: 50 mcg Documented By: LM Furosemide (Furosemide 40 Mg/4 Ml Vial) 40 mg IV NOW ONE Stop: 01/28/25 16:05 Last Admin: 01/28/25 16:11 Dose: 40 mg Documented By: LM Heparin Sodium (Porcine) (Heparin 5,000 Unit/Ml Vial) 4,000 unit 60 unit/kg (4000 unit) IV NOW ONE Stop: 01/28/25 18:55 Last Admin: 01/28/25 20:28 Dose: 4,000 unit Documented By: RLC Sodium Chloride (Normal Saline 0.9%) 1,000 mls @ 1,000 mls/hr IV BOLUS ONE Stop: 01/28/25 14:44 Last Infusion: 01/28/25 16:31 Dose: Infused Documented By: Admin: 01/28/25 14:15 Dose: 1,000 mls/hr Documented By: ES Piperacillin Sod/Tazobactam (Sod 4.5 gm/ Sodium Chloride) 100 mls @ 200 mls/hr IV NOW ONE Stop: 01/28/25 15:45 Last Infusion: 01/28/25 17:37 Dose: Infused Documented By: Admin: 01/28/25 16:56 Dose: 200 mls/hr Documented By: LM Amiodarone HCl/Dextrose (Nexterone) 150 mg in 100 mls @ 600 mls/hr IV NOW ONE; Protocol Stop: 01/28/25 16:22 Last Infusion: 01/28/25 16:31 Dose: Infused Documented By: Admin: 01/28/25 16:15 Dose: 600 mls/hr Documented By: LM Heparin Sodium/Dextrose (Heparin Drip) 25,000 unit in 500 mls @ 15.241 mls/hr IV CONT TAMMY; Protocol Last Admin: 01/28/25 20:29 Dose: 12 units/kg/hr, 15.241 mls/hr Documented By: RLC Co-signed By: MARK Magnesium Sulfate (Magnesium Sulfate 1 Gm/2 Ml Vial) 2 gm IV NOW ONE Stop: 01/28/25 17:01 Last Admin: 01/28/25 16:55 Dose: 2 gm Documented By: LM Morphine Sulfate (Morphine 4 Mg/Ml Inj) 4 mg IV NOW ONE Stop: 01/28/25 13:46 Last Admin: 01/28/25 14:15 Dose: 4 mg Documented By: DIANA Nitroglycerin (Nitroglycerin 0.4 Mg Sl Tab) 0.4 mg SL NOW ONE Stop: 01/28/25 16:16 Last Admin: 01/28/25 16:36 Dose: 0.4 mg Documented By: NASEEM Pantoprazole Sodium (Pantoprazole 40 Mg Vial) 80 mg IV NOW ONE Stop: 01/28/25 15:45 Last Admin: 01/28/25 16:37 Dose: 80 mg Documented By: NASEEM Vital Signs Vital signs: Vital Signs - 8 hr 01/28/25 19:11 01/28/25 19:11 01/28/25 19:12 Pulse Rate 60 Respiratory Rate 18 Blood Pressure 85/52 L 87/54 L Pulse Oximetry 92 Fraction of Inspired Oxygen 01/28/25 19:12 01/28/25 19:14 01/28/25 19:14 Pulse Rate 60 65 Respiratory Rate 19 24 Blood Pressure 99/61 Pulse Oximetry 92 93 Fraction of Inspired Oxygen 01/28/25 19:20 01/28/25 19:20 01/28/25 19:30 Pulse Rate 60 Respiratory Rate 19 Blood Pressure 102/63 106/68 Pulse Oximetry 95 Fraction of Inspired Oxygen 01/28/25 19:30 01/28/25 19:40 01/28/25 19:40 Pulse Rate 60 60 Respiratory Rate 20 20 Blood Pressure 104/65 Pulse Oximetry 96 96 Fraction of Inspired Oxygen 01/28/25 19:50 01/28/25 19:50 01/28/25 20:00 Pulse Rate 60 60 Respiratory Rate 20 20 Blood Pressure 106/67 Pulse Oximetry 96 97 Fraction of Inspired Oxygen 01/28/25 20:00 01/28/25 20:10 01/28/25 20:10 Pulse Rate 60 Respiratory Rate 20 Blood Pressure 106/67 110/69 Pulse Oximetry 97 Fraction of Inspired Oxygen 01/28/25 20:20 01/28/25 20:20 01/28/25 20:30 Pulse Rate 62 Respiratory Rate 20 Blood Pressure 122/73 121/69 Pulse Oximetry 98 Fraction of Inspired Oxygen 01/28/25 20:30 01/28/25 20:40 01/28/25 20:40 Pulse Rate 65 64 Respiratory Rate 23 25 H Blood Pressure 114/73 Pulse Oximetry 97 98 Fraction of Inspired Oxygen 01/28/25 20:50 01/28/25 20:50 01/28/25 21:00 Pulse Rate 67 Respiratory Rate 25 H Blood Pressure 125/77 115/72 Pulse Oximetry 99 Fraction of Inspired Oxygen 01/28/25 21:00 01/28/25 21:10 01/28/25 21:10 Pulse Rate 64 66 Respiratory Rate 27 H 24 Blood Pressure 119/78 Pulse Oximetry 97 97 Fraction of Inspired Oxygen 01/28/25 21:20 01/28/25 21:20 01/28/25 21:30 Pulse Rate 65 Respiratory Rate 22 Blood Pressure 123/78 113/71 Pulse Oximetry 97 Fraction of Inspired Oxygen 01/28/25 21:30 01/28/25 21:40 01/28/25 21:40 Pulse Rate 64 63 Respiratory Rate 20 22 Blood Pressure 106/68 Pulse Oximetry 96 95 Fraction of Inspired Oxygen 01/28/25 21:50 01/28/25 21:50 01/28/25 22:00 Pulse Rate 62 63 Respiratory Rate 21 22 Blood Pressure 107/63 Pulse Oximetry 95 95 Fraction of Inspired Oxygen 01/28/25 22:00 01/28/25 22:10 01/28/25 22:10 Pulse Rate 62 Respiratory Rate 20 Blood Pressure 107/67 112/72 Pulse Oximetry 96 Fraction of Inspired Oxygen 01/28/25 22:20 01/28/25 22:20 01/28/25 22:30 Pulse Rate 64 Respiratory Rate 20 Blood Pressure 112/71 107/68 Pulse Oximetry 95 Fraction of Inspired Oxygen 01/28/25 22:30 01/28/25 22:40 01/28/25 22:40 Pulse Rate 65 64 Respiratory Rate 19 19 Blood Pressure 111/70 Pulse Oximetry 95 95 Fraction of Inspired Oxygen 01/28/25 22:50 01/28/25 22:50 01/28/25 23:00 Pulse Rate 66 Respiratory Rate 20 Blood Pressure 108/70 106/65 Pulse Oximetry 97 Fraction of Inspired Oxygen 01/28/25 23:00 01/28/25 23:02 01/28/25 23:10 Pulse Rate 66 66 Respiratory Rate 23 23 Blood Pressure Pulse Oximetry 95 95 Fraction of Inspired Oxygen 45 01/28/25 23:10 01/28/25 23:20 01/28/25 23:20 Pulse Rate 66 Respiratory Rate 22 Blood Pressure 109/70 113/71 Pulse Oximetry 95 Fraction of Inspired Oxygen 01/28/25 23:30 01/28/25 23:30 01/28/25 23:40 Pulse Rate 67 Respiratory Rate 21 Blood Pressure 113/70 114/66 Pulse Oximetry 95 Fraction of Inspired Oxygen 01/28/25 23:40 01/28/25 23:50 01/28/25 23:50 Pulse Rate 66 68 Respiratory Rate 23 18 Blood Pressure 117/70 Pulse Oximetry 96 97 Fraction of Inspired Oxygen 01/29/25 00:00 01/29/25 00:00 01/29/25 00:10 Pulse Rate 66 Respiratory Rate 17 Blood Pressure 120/74 118/70 Pulse Oximetry 96 Fraction of Inspired Oxygen 01/29/25 00:10 01/29/25 00:20 01/29/25 00:20 Pulse Rate 64 66 Respiratory Rate 17 20 Blood Pressure 118/66 Pulse Oximetry 96 95 Fraction of Inspired Oxygen 01/29/25 00:30 01/29/25 00:30 01/29/25 00:41 Pulse Rate 64 Respiratory Rate 23 Blood Pressure 117/71 113/74 Pulse Oximetry 95 Fraction of Inspired Oxygen 01/29/25 00:41 01/29/25 00:50 01/29/25 00:50 Pulse Rate 68 66 Respiratory Rate 21 18 Blood Pressure 124/74 Pulse Oximetry 96 97 Fraction of Inspired Oxygen 01/29/25 01:00 01/29/25 01:00 Pulse Rate 67 Respiratory Rate 26 H Blood Pressure 128/76 Pulse Oximetry 97 Fraction of Inspired Oxygen <Tyrone Damon MD - Last Filed: 01/29/25 03:07> Orders Ordered: Discontinued Medications Aspirin (Aspirin 81 Mg Chew Tab) 324 mg PO NOW ONE Stop: 01/28/25 11:51 Last Admin: 01/28/25 13:55 Dose: Not Given Documented By: LM Fentanyl (Fentanyl 100 Mcg/2 Ml Inj) 50 mcg IV NOW ONE Stop: 01/28/25 15:45 Last Admin: 01/28/25 18:52 Dose: 50 mcg Documented By: LM Furosemide (Furosemide 40 Mg/4 Ml Vial) 40 mg IV NOW ONE Stop: 01/28/25 16:05 Last Admin: 01/28/25 16:11 Dose: 40 mg Documented By: LM Heparin Sodium (Porcine) (Heparin 5,000 Unit/Ml Vial) 4,000 unit 60 unit/kg (4000 unit) IV NOW ONE Stop: 01/28/25 18:55 Last Admin: 01/28/25 20:28 Dose: 4,000 unit Documented By: RLC Sodium Chloride (Normal Saline 0.9%) 1,000 mls @ 1,000 mls/hr IV BOLUS ONE Stop: 01/28/25 14:44 Last Infusion: 01/28/25 16:31 Dose: Infused Documented By: Admin: 01/28/25 14:15 Dose: 1,000 mls/hr Documented By: ES Piperacillin Sod/Tazobactam (Sod 4.5 gm/ Sodium Chloride) 100 mls @ 200 mls/hr IV NOW ONE Stop: 01/28/25 15:45 Last Infusion: 01/28/25 17:37 Dose: Infused Documented By: Admin: 01/28/25 16:56 Dose: 200 mls/hr Documented By: LM Amiodarone HCl/Dextrose (Nexterone) 150 mg in 100 mls @ 600 mls/hr IV NOW ONE; Protocol Stop: 01/28/25 16:22 Last Infusion: 01/28/25 16:31 Dose: Infused Documented By: Admin: 01/28/25 16:15 Dose: 600 mls/hr Documented By: LM Heparin Sodium/Dextrose (Heparin Drip) 25,000 unit in 500 mls @ 15.241 mls/hr IV CONT TAMMY; Protocol Last Admin: 01/28/25 20:29 Dose: 12 units/kg/hr, 15.241 mls/hr Documented By: RLC Co-signed By: MARK Magnesium Sulfate (Magnesium Sulfate 1 Gm/2 Ml Vial) 2 gm IV NOW ONE Stop: 01/28/25 17:01 Last Admin: 01/28/25 16:55 Dose: 2 gm Documented By: LM Morphine Sulfate (Morphine 4 Mg/Ml Inj) 4 mg IV NOW ONE Stop: 01/28/25 13:46 Last Admin: 01/28/25 14:15 Dose: 4 mg Documented By: DIANA Nitroglycerin (Nitroglycerin 0.4 Mg Sl Tab) 0.4 mg SL NOW ONE Stop: 01/28/25 16:16 Last Admin: 01/28/25 16:36 Dose: 0.4 mg Documented By: LM Pantoprazole Sodium (Pantoprazole 40 Mg Vial) 80 mg IV NOW ONE Stop: 01/28/25 15:45 Last Admin: 01/28/25 16:37 Dose: 80 mg Documented By: NASEEM Vital Signs Vital signs: Vital Signs - 8 hr 01/28/25 19:11 01/28/25 19:11 01/28/25 19:12 Pulse Rate 60 Respiratory Rate 18 Blood Pressure 85/52 L 87/54 L Pulse Oximetry 92 Fraction of Inspired Oxygen 01/28/25 19:12 01/28/25 19:14 01/28/25 19:14 Pulse Rate 60 65 Respiratory Rate 19 24 Blood Pressure 99/61 Pulse Oximetry 92 93 Fraction of Inspired Oxygen 01/28/25 19:20 01/28/25 19:20 01/28/25 19:30 Pulse Rate 60 Respiratory Rate 19 Blood Pressure 102/63 106/68 Pulse Oximetry 95 Fraction of Inspired Oxygen 01/28/25 19:30 01/28/25 19:40 01/28/25 19:40 Pulse Rate 60 60 Respiratory Rate 20 20 Blood Pressure 104/65 Pulse Oximetry 96 96 Fraction of Inspired Oxygen 01/28/25 19:50 01/28/25 19:50 01/28/25 20:00 Pulse Rate 60 60 Respiratory Rate 20 20 Blood Pressure 106/67 Pulse Oximetry 96 97 Fraction of Inspired Oxygen 01/28/25 20:00 01/28/25 20:10 01/28/25 20:10 Pulse Rate 60 Respiratory Rate 20 Blood Pressure 106/67 110/69 Pulse Oximetry 97 Fraction of Inspired Oxygen 01/28/25 20:20 01/28/25 20:20 01/28/25 20:30 Pulse Rate 62 Respiratory Rate 20 Blood Pressure 122/73 121/69 Pulse Oximetry 98 Fraction of Inspired Oxygen 01/28/25 20:30 01/28/25 20:40 01/28/25 20:40 Pulse Rate 65 64 Respiratory Rate 23 25 H Blood Pressure 114/73 Pulse Oximetry 97 98 Fraction of Inspired Oxygen 01/28/25 20:50 01/28/25 20:50 01/28/25 21:00 Pulse Rate 67 Respiratory Rate 25 H Blood Pressure 125/77 115/72 Pulse Oximetry 99 Fraction of Inspired Oxygen 01/28/25 21:00 01/28/25 21:10 01/28/25 21:10 Pulse Rate 64 66 Respiratory Rate 27 H 24 Blood Pressure 119/78 Pulse Oximetry 97 97 Fraction of Inspired Oxygen 01/28/25 21:20 01/28/25 21:20 01/28/25 21:30 Pulse Rate 65 Respiratory Rate 22 Blood Pressure 123/78 113/71 Pulse Oximetry 97 Fraction of Inspired Oxygen 01/28/25 21:30 01/28/25 21:40 01/28/25 21:40 Pulse Rate 64 63 Respiratory Rate 20 22 Blood Pressure 106/68 Pulse Oximetry 96 95 Fraction of Inspired Oxygen 01/28/25 21:50 01/28/25 21:50 01/28/25 22:00 Pulse Rate 62 63 Respiratory Rate 21 22 Blood Pressure 107/63 Pulse Oximetry 95 95 Fraction of Inspired Oxygen 01/28/25 22:00 01/28/25 22:10 01/28/25 22:10 Pulse Rate 62 Respiratory Rate 20 Blood Pressure 107/67 112/72 Pulse Oximetry 96 Fraction of Inspired Oxygen 01/28/25 22:20 01/28/25 22:20 01/28/25 22:30 Pulse Rate 64 Respiratory Rate 20 Blood Pressure 112/71 107/68 Pulse Oximetry 95 Fraction of Inspired Oxygen 01/28/25 22:30 01/28/25 22:40 01/28/25 22:40 Pulse Rate 65 64 Respiratory Rate 19 19 Blood Pressure 111/70 Pulse Oximetry 95 95 Fraction of Inspired Oxygen 01/28/25 22:50 01/28/25 22:50 01/28/25 23:00 Pulse Rate 66 Respiratory Rate 20 Blood Pressure 108/70 106/65 Pulse Oximetry 97 Fraction of Inspired Oxygen 01/28/25 23:00 01/28/25 23:02 01/28/25 23:10 Pulse Rate 66 66 Respiratory Rate 23 23 Blood Pressure Pulse Oximetry 95 95 Fraction of Inspired Oxygen 45 01/28/25 23:10 01/28/25 23:20 01/28/25 23:20 Pulse Rate 66 Respiratory Rate 22 Blood Pressure 109/70 113/71 Pulse Oximetry 95 Fraction of Inspired Oxygen 01/28/25 23:30 01/28/25 23:30 01/28/25 23:40 Pulse Rate 67 Respiratory Rate 21 Blood Pressure 113/70 114/66 Pulse Oximetry 95 Fraction of Inspired Oxygen 01/28/25 23:40 01/28/25 23:50 01/28/25 23:50 Pulse Rate 66 68 Respiratory Rate 23 18 Blood Pressure 117/70 Pulse Oximetry 96 97 Fraction of Inspired Oxygen 01/29/25 00:00 01/29/25 00:00 01/29/25 00:10 Pulse Rate 66 Respiratory Rate 17 Blood Pressure 120/74 118/70 Pulse Oximetry 96 Fraction of Inspired Oxygen 01/29/25 00:10 01/29/25 00:20 01/29/25 00:20 Pulse Rate 64 66 Respiratory Rate 17 20 Blood Pressure 118/66 Pulse Oximetry 96 95 Fraction of Inspired Oxygen 01/29/25 00:30 01/29/25 00:30 01/29/25 00:41 Pulse Rate 64 Respiratory Rate 23 Blood Pressure 117/71 113/74 Pulse Oximetry 95 Fraction of Inspired Oxygen 01/29/25 00:41 01/29/25 00:50 01/29/25 00:50 Pulse Rate 68 66 Respiratory Rate 21 18 Blood Pressure 124/74 Pulse Oximetry 96 97 Fraction of Inspired Oxygen 01/29/25 01:00 01/29/25 01:00 Pulse Rate 67 Respiratory Rate 26 H Blood Pressure 128/76 Pulse Oximetry 97 Fraction of Inspired Oxygen MDM - Chest Pain <Sheela Yip, DO - Last Filed: 01/29/25 12:18> Lab Data 01/28/25 12:22 01/28/25 12:22 Labs: Lab Results 01/28/25 01/28/25 01/28/25 Range/Units 12:22 12:32 14:10 WBC 21.0 H (4.5-11.0) X10^3/uL RBC 5.16 (4.0-5.2) X10^6/uL Hgb 15.3 (12.0-16.0) g/dL Hct 45.0 (36-46) % MCV 87.2 (80-100) fL MCH 29.5 (26-34) PG MCHC 33.9 (30-36) % RDW 14.1 (11.6-14.8) % Plt Count 311 (150-400) X10^3/uL Neut % (Auto) 80.7 H (50-75) % Lymph % (Auto) 12.9 L (25-40) % [place] % (Auto) 5.9 (3-14) % Eos % (Auto) 0.2 L (2-4) % Baso % (Auto) 0.3 (0-2) % Neut # (Auto) 00349 H (8562-4756) /uL Lymph # (Auto) 2700 (6457-9693) /uL Jess[place] # (Auto) 1200 H (0-900) /uL Eos # (Auto) 0 (0-450) /uL Baso # (Auto) 100 (0-100) /uL PT 12.9 H (9.4-12.5) SECONDS INR 1.1 (0.9-1.3) APTT 38 H (25.1-36.5) SECONDS ABG Sample Site ABG pH (7.35-7.45) ABG pCO2 (35-45) mmHg ABG pO2 (80-100) mmHg ABG HCO3 (23-27) mmol/L ABG Total CO2 (23-27) mmol/L ABG O2 Saturation (95-100) % ABG Base Excess (-2-3) mmol/L Obi Test Respiration Rate O2 Delivery Device Mode of Support FiO2 % % Pressure Support PEEP or CPAP Sodium 138 (137-145) mmol/L Potassium 4.8 (3.4-5.1) mmol/L Chloride 110 H (98-107) mmol/L Carbon Dioxide 17 L (22-32) mmol/L BUN 26 H (7-17) mg/dL Creatinine 1.06 H (0.52-1.04) mg/dL Estimated GFR 53 L (>60) mL/min BUN/Creatinine Ratio 24.5 H (6-22) Glucose 194 H (70-99) mg/dL Lactate 3.1 H (0.7-2.1) mmol/L Calcium 9.8 (8.4-10.2) mg/dL Magnesium 1.8 (1.6-2.3) mg/dL Total Bilirubin 0.7 (0.2-1.3) mg/dL AST 46 H (14-36) IU/L ALT 16 (<35) IU/L Alkaline Phosphatase 113 (38-126) U/L Total Creatine Kinase 41 (30-135) U/L Troponin I 0.056 H (0.01-0.034) ng/mL NT-Pro-B Natriuret Pep 2330 H (<450) pg/mL Total Protein 8.2 (6.3-8.2) g/dL Albumin 4.5 (3.5-5.0) g/dL Globulin 3.7 (1.7-4.1) g/dL Albumin/Globulin Ratio 1.2 (1.0-2.8) Lipase 557 H (23-300) U/L Procalcitonin 0.042 (<0.5) ng/mL Stl C. cayetanensis PCR Not detected (Not Detect) Stool Rotavirus (PCR) Not detected (Not Detect) Stool Adenovirus (PCR) Not detected (Not Detect) Stool Astrovirus (PCR) Not detected (Not Detect) Stool Cryptosporidium PCR Not detected (Not Detect) Stl E.coli Shiga Tox PCR Not detected (Not Detect) St Sh/Enteroin Ecoli PCR Not detected (Not Detect) Stl Enterotoxigenic E PCR Not detected (Not Detect) Stool EPEC (PCR) Not detected (Not Detect) Stl E. histolytica PCR Not detected (Not Detect) Stool Giardia Lamblia PCR Not detected (Not Detect) Stool Sapovirus (PCR) Not detected (Not Detect) Stl P. shigelloides PCR Not detected (Not Detect) St Y.enterocolitica PCR Not detected (Not Detect) Stool Vibrio (PCR) Not detected (Not Detect) Stl Vibrio cholerae PCR Not detected (Not Detect) Stl Enteroaggr Ecoli PCR Not detected (Not Detect) Stl Norovirus GI/GII PCR Not detected (Not Detect) Campylobacter (PCR) Not detected (Not Detect) C. difficile Tox (PCR) Not detected (Not Detect) Salmonella (PCR) Not detected (Not Detect) 01/28/25 01/28/25 01/28/25 Range/Units 15:28 16:28 16:36 WBC (4.5-11.0) X10^3/uL RBC (4.0-5.2) X10^6/uL Hgb (12.0-16.0) g/dL Hct (36-46) % MCV (80-100) fL MCH (26-34) PG MCHC (30-36) % RDW (11.6-14.8) % Plt Count (150-400) X10^3/uL Neut % (Auto) (50-75) % Lymph % (Auto) (25-40) % [place] % (Auto) (3-14) % Eos % (Auto) (2-4) % Baso % (Auto) (0-2) % Neut # (Auto) (6101-7495) /uL Lymph # (Auto) (7064-9135) /uL Jess[place] # (Auto) (0-900) /uL Eos # (Auto) (0-450) /uL Baso # (Auto) (0-100) /uL PT (9.4-12.5) SECONDS INR (0.9-1.3) APTT (25.1-36.5) SECONDS ABG Sample Site Left radial ABG pH 7.13 L* (7.35-7.45) ABG pCO2 45.5 H (35-45) mmHg ABG pO2 130 H (80-100) mmHg ABG HCO3 15 L (23-27) mmol/L ABG Total CO2 15 L (23-27) mmol/L ABG O2 Saturation 98 (95-100) % ABG Base Excess -14.0 L (-2-3) mmol/L Obi Test Positive Respiration Rate 14 O2 Delivery Device Bipap Mode of Support Bi-level ventilation FiO2 % 95 % % Pressure Support 14 PEEP or CPAP 6 Sodium (137-145) mmol/L Potassium (3.4-5.1) mmol/L Chloride (98-107) mmol/L Carbon Dioxide (22-32) mmol/L BUN (7-17) mg/dL Creatinine (0.52-1.04) mg/dL Estimated GFR (>60) mL/min BUN/Creatinine Ratio (6-22) Glucose (70-99) mg/dL Lactate 4.0 H (0.7-2.1) mmol/L Calcium (8.4-10.2) mg/dL Magnesium (1.6-2.3) mg/dL Total Bilirubin (0.2-1.3) mg/dL AST (14-36) IU/L ALT (<35) IU/L Alkaline Phosphatase (38-126) U/L Total Creatine Kinase (30-135) U/L Troponin I 0.099 H (0.01-0.034) ng/mL NT-Pro-B Natriuret Pep (<450) pg/mL Total Protein (6.3-8.2) g/dL Albumin (3.5-5.0) g/dL Globulin (1.7-4.1) g/dL Albumin/Globulin Ratio (1.0-2.8) Lipase (23-300) U/L Procalcitonin (<0.5) ng/mL Stl C. cayetanensis PCR (Not Detect) Stool Rotavirus (PCR) (Not Detect) Stool Adenovirus (PCR) (Not Detect) Stool Astrovirus (PCR) (Not Detect) Stool Cryptosporidium PCR (Not Detect) Stl E.coli Shiga Tox PCR (Not Detect) St Sh/Enteroin Ecoli PCR (Not Detect) Stl Enterotoxigenic E PCR (Not Detect) Stool EPEC (PCR) (Not Detect) Stl E. histolytica PCR (Not Detect) Stool Giardia Lamblia PCR (Not Detect) Stool Sapovirus (PCR) (Not Detect) Stl P. shigelloides PCR (Not Detect) St Y.enterocolitica PCR (Not Detect) Stool Vibrio (PCR) (Not Detect) Stl Vibrio cholerae PCR (Not Detect) Stl Enteroaggr Ecoli PCR (Not Detect) Stl Norovirus GI/GII PCR (Not Detect) Campylobacter (PCR) (Not Detect) C. difficile Tox (PCR) (Not Detect) Salmonella (PCR) (Not Detect) 01/28/25 01/28/25 01/28/25 Range/Units 17:43 17:58 20:17 WBC (4.5-11.0) X10^3/uL RBC (4.0-5.2) X10^6/uL Hgb (12.0-16.0) g/dL Hct (36-46) % MCV (80-100) fL MCH (26-34) PG MCHC (30-36) % RDW (11.6-14.8) % Plt Count (150-400) X10^3/uL Neut % (Auto) (50-75) % Lymph % (Auto) (25-40) % [place] % (Auto) (3-14) % Eos % (Auto) (2-4) % Baso % (Auto) (0-2) % Neut # (Auto) (1420-9655) /uL Lymph # (Auto) (4531-7300) /uL Jessamine # (Auto) (0-900) /uL Eos # (Auto) (0-450) /uL Baso # (Auto) (0-100) /uL PT 12.6 H (9.4-12.5) SECONDS INR 1.1 (0.9-1.3) APTT (25.1-36.5) SECONDS ABG Sample Site Left radial ABG pH 7.24 L* (7.35-7.45) ABG pCO2 38.5 (35-45) mmHg ABG pO2 146 H (80-100) mmHg ABG HCO3 17 L (23-27) mmol/L ABG Total CO2 16 L (23-27) mmol/L ABG O2 Saturation 99 (95-100) % ABG Base Excess -10.0 L (-2-3) mmol/L Obi Test Positive Respiration Rate O2 Delivery Device Bipap Mode of Support FiO2 % 85 % % Pressure Support PEEP or CPAP Sodium (137-145) mmol/L Potassium (3.4-5.1) mmol/L Chloride (98-107) mmol/L Carbon Dioxide (22-32) mmol/L BUN (7-17) mg/dL Creatinine (0.52-1.04) mg/dL Estimated GFR (>60) mL/min BUN/Creatinine Ratio (6-22) Glucose (70-99) mg/dL Lactate (0.7-2.1) mmol/L Calcium (8.4-10.2) mg/dL Magnesium (1.6-2.3) mg/dL Total Bilirubin (0.2-1.3) mg/dL AST (14-36) IU/L ALT (<35) IU/L Alkaline Phosphatase (38-126) U/L Total Creatine Kinase (30-135) U/L Troponin I 0.207 H* (0.01-0.034) ng/mL NT-Pro-B Natriuret Pep (<450) pg/mL Total Protein (6.3-8.2) g/dL Albumin (3.5-5.0) g/dL Globulin (1.7-4.1) g/dL Albumin/Globulin Ratio (1.0-2.8) Lipase (23-300) U/L Procalcitonin (<0.5) ng/mL Stl C. cayetanensis PCR (Not Detect) Stool Rotavirus (PCR) (Not Detect) Stool Adenovirus (PCR) (Not Detect) Stool Astrovirus (PCR) (Not Detect) Stool Cryptosporidium PCR (Not Detect) Stl E.coli Shiga Tox PCR (Not Detect) St Sh/Enteroin Ecoli PCR (Not Detect) Stl Enterotoxigenic E PCR (Not Detect) Stool EPEC (PCR) (Not Detect) Stl E. histolytica PCR (Not Detect) Stool Giardia Lamblia PCR (Not Detect) Stool Sapovirus (PCR) (Not Detect) Stl P. shigelloides PCR (Not Detect) St Y.enterocolitica PCR (Not Detect) Stool Vibrio (PCR) (Not Detect) Stl Vibrio cholerae PCR (Not Detect) Stl Enteroaggr Ecoli PCR (Not Detect) Stl Norovirus GI/GII PCR (Not Detect) Campylobacter (PCR) (Not Detect) C. difficile Tox (PCR) (Not Detect) Salmonella (PCR) (Not Detect) ECG Data Attestation: I personally reviewed and interpreted this ECG as follows: Prior ECG tracings: available for review Interpretation: Sinus rhythm with sinus arrhythmia rate of 71 W[place] 192 QRS of 140 QTC of 499, patient has new T-wave inversion in 2 3 and AVF compared to prior in 09/11/2021, otherwise similar appearing EKG does have T-wave inverted in lateral leads. Wide complex tachycardia occasional paced complexes rate of 133 QRS of 190 QTC of 577. Left axis deviation left bundle-branch block. Patient's T-waves are now elevated diffusely throughout. MDM Narrative Medical decision making narrative: Labs show white count of 21 hemoglobin of 15 platelets of 311, coags are negative, creatinine is 1.06 the CO2 of 17 chloride of 110 potassium is 4.8 sodium is 138 BUN 26 glucose is 184 lactate is 3.1 patient was 46 but otherwise normal LFTs troponin 0.056 with a BNP of 23 30. Procalcitonin 0.042. Repeat troponin is 0.099, troponin was repeated a 3rd time in his positive at 0.207. lactate was 3.1, repeat lactate was 4 although this was after her event in CT. GI panel is negative Chest x-ray shows no acute change CT angio chest abdomen and pelvis, patient had rapid response in CT did not receive any contrast as her IV was to positional but did have non-con CT which showed on chest abdomen and pelvis moderate to severe diffuse lung disease present with a multifocal opacities and septal thickening likely edema or alveolar damage, diffuse infection also possible no drainable effusions, trace right effusion present. Coronary calcifications. Probable mild diffuse colonic wall thickening possibly colitis. No abdominal aortic aneurysm noted on noncontrast study. Patient attempted to go to CT when lying back on 4 L nasal cannula became more hypoxic increasing distress. Was unable to perform was placed on BiPAP was given 40 mg of Lasix. Patient also became more tachycardic. ABG. On re-evaluation patient was lungs are now wet particularly on the right side. CT was unsuccessful. Suspect patient maybe having like a flash pulmonary edema, possibly been pneumonia but she has hypertension he was more tachycardic with significant drop in her O2 sat when laid flat for CT. Was placed on BiPAP but it was 100% FiO2. Was given Lasix, nitro. Patient notes she was DNR/DNI. Patient received aspirin, had received fluids this pain worsened patient's she was quite wet on repeat evaluation after CT and being laid flat and had significant hypoxia and increased work of breathing. Also had a brief change to her rhythm which appeared to be a wide complex tachycardia she had received a dose of amiodarone at normalized here. She received nitro, Lasix as well as Mag is her Mag level was low. And was placed on BiPAP. Patient felt significantly improved after this her blood pressure also improved by quite a bit. Prior to this she had also received antibiotics for potential pneumonia, she had received 4 mg of morphine. Spoke with Dr. Maravilla, reclamation furnace operator at [facility] who accepts for transfer. Coordinator will call back when a bed is available. Patient signed out to Dr. Damon while awaiting bed assignment for transfer. 01/28/25, 1899, [place]. Sign-out from Dr. Yip. 80-year-old female with recent nausea vomiting diarrhea, shortness of breath, history of coronary artery disease with prior 12 stents, has been off her diuretics for the last [address] chest abdomen and pelvis imaging performed as a noncontrast scan, showed COPD changes, infiltrate versus edema. Patient tolerated BiPAP, feels better. Initial troponin negative but increasing. Heparin started for possible non STEMI. DNR DNI order noted but patient wants treatment for reversible causes, seems amenable to having cardiology evaluation and medical management treatments. Patient received nitroglycerin, Lasix, be magnesium. Had narrow complex tachycardia, then wide, amiodarone bolus given, now narrow again. Repeat interval troponin 0.2 increased. IV heparin was initiated for possible non STEMI treatment. Medical treatment for now. No cardiologists here for consultation. Patient amenable to transfer. Patient has been accepted for transfer to [facility]. Await bed assignment. Assumed interim care. 2214, that has been assigned, transport anticipated 1:00 a.m. 0045, patient feeling well on BiPAP, aware transport pending soon to [facility]. Stable for transfer as planned. <Tyrone Damon MD - Last Filed: 01/29/25 03:07> Lab Data Labs: Lab Results 01/28/25 01/28/25 01/28/25 Range/Units 12:22 12:32 14:10 WBC 21.0 H (4.5-11.0) X10^3/uL RBC 5.16 (4.0-5.2) X10^6/uL Hgb 15.3 (12.0-16.0) g/dL Hct 45.0 (36-46) % MCV 87.2 (80-100) fL MCH 29.5 (26-34) PG MCHC 33.9 (30-36) % RDW 14.1 (11.6-14.8) % Plt Count 311 (150-400) X10^3/uL Neut % (Auto) 80.7 H (50-75) % Lymph % (Auto) 12.9 L (25-40) % Jessamine % (Auto) 5.9 (3-14) % Eos % (Auto) 0.2 L (2-4) % Baso % (Auto) 0.3 (0-2) % Neut # (Auto) 33464 H (6407-3418) /uL Lymph # (Auto) 2700 (0271-8337) /uL Jessamine # (Auto) 1200 H (0-900) /uL Eos # (Auto) 0 (0-450) /uL Baso # (Auto) 100 (0-100) /uL PT 12.9 H (9.4-12.5) SECONDS INR 1.1 (0.9-1.3) APTT 38 H (25.1-36.5) SECONDS ABG Sample Site ABG pH (7.35-7.45) ABG pCO2 (35-45) mmHg ABG pO2 (80-100) mmHg ABG HCO3 (23-27) mmol/L ABG Total CO2 (23-27) mmol/L ABG O2 Saturation (95-100) % ABG Base Excess (-2-3) mmol/L Obi Test Respiration Rate O2 Delivery Device Mode of Support FiO2 % % Pressure Support PEEP or CPAP Sodium 138 (137-145) mmol/L Potassium 4.8 (3.4-5.1) mmol/L Chloride 110 H (98-107) mmol/L Carbon Dioxide 17 L (22-32) mmol/L BUN 26 H (7-17) mg/dL Creatinine 1.06 H (0.52-1.04) mg/dL Estimated GFR 53 L (>60) mL/min BUN/Creatinine Ratio 24.5 H (6-22) Glucose 194 H (70-99) mg/dL Lactate 3.1 H (0.7-2.1) mmol/L Calcium 9.8 (8.4-10.2) mg/dL Magnesium 1.8 (1.6-2.3) mg/dL Total Bilirubin 0.7 (0.2-1.3) mg/dL AST 46 H (14-36) IU/L ALT 16 (<35) IU/L Alkaline Phosphatase 113 (38-126) U/L Total Creatine Kinase 41 (30-135) U/L Troponin I 0.056 H (0.01-0.034) ng/mL NT-Pro-B Natriuret Pep 2330 H (<450) pg/mL Total Protein 8.2 (6.3-8.2) g/dL Albumin 4.5 (3.5-5.0) g/dL Globulin 3.7 (1.7-4.1) g/dL Albumin/Globulin Ratio 1.2 (1.0-2.8) Lipase 557 H (23-300) U/L Procalcitonin 0.042 (<0.5) ng/mL Stl C. cayetanensis PCR Not detected (Not Detect) Stool Rotavirus (PCR) Not detected (Not Detect) Stool Adenovirus (PCR) Not detected (Not Detect) Stool Astrovirus (PCR) Not detected (Not Detect) Stool Cryptosporidium PCR Not detected (Not Detect) Stl E.coli Shiga Tox PCR Not detected (Not Detect) St Sh/Enteroin Ecoli PCR Not detected (Not Detect) Stl Enterotoxigenic E PCR Not detected (Not Detect) Stool EPEC (PCR) Not detected (Not Detect) Stl E. histolytica PCR Not detected (Not Detect) Stool Giardia Lamblia PCR Not detected (Not Detect) Stool Sapovirus (PCR) Not detected (Not Detect) Stl P. shigelloides PCR Not detected (Not Detect) St Y.enterocolitica PCR Not detected (Not Detect) Stool Vibrio (PCR) Not detected (Not Detect) Stl Vibrio cholerae PCR Not detected (Not Detect) Stl Enteroaggr Ecoli PCR Not detected (Not Detect) Stl Norovirus GI/GII PCR Not detected (Not Detect) Campylobacter (PCR) Not detected (Not Detect) C. difficile Tox (PCR) Not detected (Not Detect) Salmonella (PCR) Not detected (Not Detect) 01/28/25 01/28/25 01/28/25 Range/Units 15:28 16:28 16:36 WBC (4.5-11.0) X10^3/uL RBC (4.0-5.2) X10^6/uL Hgb (12.0-16.0) g/dL Hct (36-46) % MCV (80-100) fL MCH (26-34) PG MCHC (30-36) % RDW (11.6-14.8) % Plt Count (150-400) X10^3/uL Neut % (Auto) (50-75) % Lymph % (Auto) (25-40) % Jessamine % (Auto) (3-14) % Eos % (Auto) (2-4) % Baso % (Auto) (0-2) % Neut # (Auto) (1818-7994) /uL Lymph # (Auto) (2344-7005) /uL Jess[place] # (Auto) (0-900) /uL Eos # (Auto) (0-450) /uL Baso # (Auto) (0-100) /uL PT (9.4-12.5) SECONDS INR (0.9-1.3) APTT (25.1-36.5) SECONDS ABG Sample Site Left radial ABG pH 7.13 L* (7.35-7.45) ABG pCO2 45.5 H (35-45) mmHg ABG pO2 130 H (80-100) mmHg ABG HCO3 15 L (23-27) mmol/L ABG Total CO2 15 L (23-27) mmol/L ABG O2 Saturation 98 (95-100) % ABG Base Excess -14.0 L (-2-3) mmol/L Obi Test Positive Respiration Rate 14 O2 Delivery Device Bipap Mode of Support Bi-level ventilation FiO2 % 95 % % Pressure Support 14 PEEP or CPAP 6 Sodium (137-145) mmol/L Potassium (3.4-5.1) mmol/L Chloride (98-107) mmol/L Carbon Dioxide (22-32) mmol/L BUN (7-17) mg/dL Creatinine (0.52-1.04) mg/dL Estimated GFR (>60) mL/min BUN/Creatinine Ratio (6-22) Glucose (70-99) mg/dL Lactate 4.0 H (0.7-2.1) mmol/L Calcium (8.4-10.2) mg/dL Magnesium (1.6-2.3) mg/dL Total Bilirubin (0.2-1.3) mg/dL AST (14-36) IU/L ALT (<35) IU/L Alkaline Phosphatase (38-126) U/L Total Creatine Kinase (30-135) U/L Troponin I 0.099 H (0.01-0.034) ng/mL NT-Pro-B Natriuret Pep (<450) pg/mL Total Protein (6.3-8.2) g/dL Albumin (3.5-5.0) g/dL Globulin (1.7-4.1) g/dL Albumin/Globulin Ratio (1.0-2.8) Lipase (23-300) U/L Procalcitonin (<0.5) ng/mL Stl C. cayetanensis PCR (Not Detect) Stool Rotavirus (PCR) (Not Detect) Stool Adenovirus (PCR) (Not Detect) Stool Astrovirus (PCR) (Not Detect) Stool Cryptosporidium PCR (Not Detect) Stl E.coli Shiga Tox PCR (Not Detect) St Sh/Enteroin Ecoli PCR (Not Detect) Stl Enterotoxigenic E PCR (Not Detect) Stool EPEC (PCR) (Not Detect) Stl E. histolytica PCR (Not Detect) Stool Giardia Lamblia PCR (Not Detect) Stool Sapovirus (PCR) (Not Detect) Stl P. shigelloides PCR (Not Detect) St Y.enterocolitica PCR (Not Detect) Stool Vibrio (PCR) (Not Detect) Stl Vibrio cholerae PCR (Not Detect) Stl Enteroaggr Ecoli PCR (Not Detect) Stl Norovirus GI/GII PCR (Not Detect) Campylobacter (PCR) (Not Detect) C. difficile Tox (PCR) (Not Detect) Salmonella (PCR) (Not Detect) 01/28/25 01/28/25 01/28/25 Range/Units 17:43 17:58 20:17 WBC (4.5-11.0) X10^3/uL RBC (4.0-5.2) X10^6/uL Hgb (12.0-16.0) g/dL Hct (36-46) % MCV (80-100) fL MCH (26-34) PG MCHC (30-36) % RDW (11.6-14.8) % Plt Count (150-400) X10^3/uL Neut % (Auto) (50-75) % Lymph % (Auto) (25-40) % Jessamine % (Auto) (3-14) % Eos % (Auto) (2-4) % Baso % (Auto) (0-2) % Neut # (Auto) (4030-6222) /uL Lymph # (Auto) (7992-9152) /uL Jessamine # (Auto) (0-900) /uL Eos # (Auto) (0-450) /uL Baso # (Auto) (0-100) /uL PT 12.6 H (9.4-12.5) SECONDS INR 1.1 (0.9-1.3) APTT (25.1-36.5) SECONDS ABG Sample Site Left radial ABG pH 7.24 L* (7.35-7.45) ABG pCO2 38.5 (35-45) mmHg ABG pO2 146 H (80-100) mmHg ABG HCO3 17 L (23-27) mmol/L ABG Total CO2 16 L (23-27) mmol/L ABG O2 Saturation 99 (95-100) % ABG Base Excess -10.0 L (-2-3) mmol/L Obi Test Positive Respiration Rate O2 Delivery Device Bipap Mode of Support FiO2 % 85 % % Pressure Support PEEP or CPAP Sodium (137-145) mmol/L Potassium (3.4-5.1) mmol/L Chloride (98-107) mmol/L Carbon Dioxide (22-32) mmol/L BUN (7-17) mg/dL Creatinine (0.52-1.04) mg/dL Estimated GFR (>60) mL/min BUN/Creatinine Ratio (6-22) Glucose (70-99) mg/dL Lactate (0.7-2.1) mmol/L Calcium (8.4-10.2) mg/dL Magnesium (1.6-2.3) mg/dL Total Bilirubin (0.2-1.3) mg/dL AST (14-36) IU/L ALT (<35) IU/L Alkaline Phosphatase (38-126) U/L Total Creatine Kinase (30-135) U/L Troponin I 0.207 H* (0.01-0.034) ng/mL NT-Pro-B Natriuret Pep (<450) pg/mL Total Protein (6.3-8.2) g/dL Albumin (3.5-5.0) g/dL Globulin (1.7-4.1) g/dL Albumin/Globulin Ratio (1.0-2.8) Lipase (23-300) U/L Procalcitonin (<0.5) ng/mL Stl C. cayetanensis PCR (Not Detect) Stool Rotavirus (PCR) (Not Detect) Stool Adenovirus (PCR) (Not Detect) Stool Astrovirus (PCR) (Not Detect) Stool Cryptosporidium PCR (Not Detect) Stl E.coli Shiga Tox PCR (Not Detect) St Sh/Enteroin Ecoli PCR (Not Detect) Stl Enterotoxigenic E PCR (Not Detect) Stool EPEC (PCR) (Not Detect) Stl E. histolytica PCR (Not Detect) Stool Giardia Lamblia PCR (Not Detect) Stool Sapovirus (PCR) (Not Detect) Stl P. shigelloides PCR (Not Detect) St Y.enterocolitica PCR (Not Detect) Stool Vibrio (PCR) (Not Detect) Stl Vibrio cholerae PCR (Not Detect) Stl Enteroaggr Ecoli PCR (Not Detect) Stl Norovirus GI/GII PCR (Not Detect) Campylobacter (PCR) (Not Detect) C. difficile Tox (PCR) (Not Detect) Salmonella (PCR) (Not Detect) MDM Narrative Medical decision making narrative: Labs show white count of 21 hemoglobin of 15 platelets of 311, coags are negative, creatinine is 1.06 the CO2 of 17 chloride of 110 potassium is 4.8 sodium is 138 BUN 26 glucose is 184 lactate is 3.1 patient was 46 but otherwise normal LFTs troponin 0.056 with a BNP of 23 30. Procalcitonin 0.042. Repeat troponin is 0.099, troponin was repeated a 3rd time in his positive at 0.207. lactate was 3.1, repeat lactate was 4 although this was after her event in CT. GI panel is negative Chest x-ray shows no acute change CT angio chest abdomen and pelvis, patient had rapid response in CT did not receive any contrast as her IV was to positional but did have non-con CT which showed on chest abdomen and pelvis moderate to severe diffuse lung disease present with a multifocal opacities and septal thickening likely edema or alveolar damage, diffuse infection also possible no drainable effusions, trace right effusion present. Coronary calcifications. Probable mild diffuse colonic wall thickening possibly colitis. No abdominal aortic aneurysm noted on noncontrast study. Patient attempted to go to CT when lying back on 4 L nasal cannula became more hypoxic increasing distress. Was unable to perform was placed on BiPAP was given 40 mg of Lasix. Patient also became more tachycardic. ABG. On re-evaluation patient was lungs are not wet particularly on the right side. CT was unsuccessful. Suspect patient maybe having like a flash pulmonary edema, possibly been ammonia but she has hypertension he was more tachycardic with significant drop in her O2 sat when laid flat for CT. Was placed on BiPAP but it was 100% FiO2. Was given Lasix, nitro. Patient notes she was DNR/DNI. Patient received aspirin, had received fluids this pain worsened patient's she was quite wet on repeat evaluation after CT and being laid flat and had significant hypoxia and increased work of breathing. Also had a brief change to her rhythm which appeared to be a wide complex tachycardia she had received a dose of amiodarone at normalized here. She received nitro, Lasix as well as Mag is her Mag level was low. And was placed on BiPAP. Patient felt significantly improved after this her blood pressure also improved by quite a bit. Prior to this she had also received antibiotics for potential pneumonia, she had received 4 mg of morphine. Spoke with Dr. Maravilla, reclamation furnace operator at [facility] who accepts for transfer. Coordinator will call back when a bed is available. Patient signed out to Dr. Damon while awaiting bed assignment for transfer. 01/28/251899, [place]. Sign-out from Dr. Yip. 80-year-old female with recent nausea vomiting diarrhea, shortness of breath, history of coronary artery disease with prior 12 stents, has been off her diuretics for the last [address] chest abdomen and pelvis imaging performed as a noncontrast scan, showed COPD changes, infiltrate versus edema. Patient tolerated BiPAP, feels better. Initial troponin negative but increasing. Heparin started for possible non STEMI. DNR DNI order noted but patient wants treatment for reversible causes, seems amenable to having cardiology evaluation and medical management treatments. Patient received nitroglycerin, Lasix, be magnesium. Had narrow complex tachycardia, then wide, amiodarone bolus given, now narrow again. Repeat interval troponin 0.2 increased. IV heparin was initiated for possible non STEMI treatment. Medical treatment for now. No cardiologists here for consultation. Patient amenable to transfer. Patient has been accepted for transfer to [facility]. Await bed assignment. Assumed interim care. 2214, that has been assigned, transport anticipated 1:00 a.m. 0045, patient feeling well on BiPAP, aware transport pending soon to [facility]. Stable for transfer as planned. Critical Care Time <Sheela Yip DO - Last Filed: 01/29/25 12:18> Critical Care Time Critical Care Time: Yes Attestation: The high probability of a clinically significant, sudden or life threatening deterioration of the cardiac/pulmonary system(s) required my full and direct attention, intervention and personal management. The aggregate critical care time was [--] minutes. This time is in addition to time spent performing reported procedures but includes the following: [x] Data Review and interpretation [x] Patient assessment and monitoring of vital signs [x] Documentation [x] Medication orders and management <Tyrone Damon MD - Last Filed: 01/29/25 03:07> Critical Care Time Total Critical Care Time: 35 Attestation: The high probability of a clinically significant, sudden or life threatening deterioration of the cardiac/pulmonary system(s) required my full and direct attention, intervention and personal management. The aggregate critical care time was [35] minutes. This time is in addition to time spent performing reported procedures but includes the following: [x] Data Review and interpretation [x] Patient assessment and monitoring of vital signs [x] Documentation [x] Medication orders and management Discharge Plan Departure Patient Disposition: [facility] Clinical Impression: Congestive heart failure (CHF), Non-ST elevation OR (NSTEMI), Pneumonia, Hypertension Prescriptions: No Action atorvastatin 80 mg tablet 80 mg PO BEDTIME Patient Comments: take 1 tablet by mouth every evening carvedilol 25 mg Tablet 25 mg PO BID paroxetine HCl 10 mg Tablet 10 mg PO DAILY clopidogrel 75 mg Tablet 75 mg PO DAILY aspirin [Aspir-81] 81 mg Tablet,Delayed Release (Dr/Ec) 81 mg PO DAILY pantoprazole [Protonix] 40 mg Tablet,Delayed Release (Dr/Ec) 40 mg PO DAILY nortriptyline 10 mg Capsule 10 mg PO DAILY nitroglycerin 0.4 mg Tablet, Sublingual 0.4 mg sublingual PRN PRN (Reason: Chest Pain) irbesartan 75 mg Tablet 37.5 mg PO DAILY Rx Instructions: take 1/2 tab PO QD cholecalciferol (vitamin D3) 50 mcg (2,000 unit) Capsule 50 mcg PO DAILY Referrals: Stephanie Hidalgo PA-C [Primary Care Provider, Medical]
--- NOTE | 2025-01-28 15:44 | DI.CT.S_ITS ---
PROCEDURE: CT noncontrast CHEST ABDOMEN PELVIS INDICATIONS: dissection protocoal, low O2, epigastric chest pain, on eliq TECHNIQUE: Pre contrast images obtained in the chest abdomen and pelvis. Multiplanar reformats were obtained. This was originally ordered as angiography dissection protocol however, patient returned to the emergency department before angio portion could be completed COMPARISON: [facility], CT, CT ANGIO CHEST PE PROTOCOL, 06/18/2021, 19:36. [facility], CT, CT ABDOMEN PELVIS WITH CONTRAST, 11/05/2022, 14:25. FINDINGS: Image quality: Diagnostic Lungs and pleura: Moderate diffuse opacities and septal thickening. Trace right effusion Mediastinum, heart, and esophagus: Left chest wall pulse generator. Electrode leads in place. There are coronary calcifications. Moderate atherosclerotic calcifications of the aorta and its branches. There are borderline enlarged lymph nodes, probably similar to prior, possibly reactive Chest wall and thyroid: Unremarkable Liver: No contour deforming mass on this noncontrast study Gallbladder and biliary system: Cholecystectomy clips. Mildly distended biliary system again seen, probably related to postsurgical state Pancreas: Moderate parenchymal atrophy. No ductal dilation Spleen: Nonenlarged Adrenals: Left-sided thickening again seen. No discrete right-sided nodule. Kidneys: Left kidney is absent. No contour deforming right renal mass or hydronephrosis Vessels and lymph nodes: Moderate atherosclerotic calcifications of the aorta and its branches. No abdominal aortic aneurysm. No enlarged lymph nodes by size criteria. Bowel and peritoneum: No evidence of bowel obstruction. No drainable abscess or ascites. Colonic diverticulosis. Possible mild diffuse colonic wall thickening. Body wall: Unremarkable Pelvis: Partially obscured by metallic artifact. The uterus is not seen. Bladder is unremarkable Bones: Right hip arthroplasty. Degenerative osseous changes. IMPRESSION: Study originally ordered as CT angiography. Patient returned to the emergency department prior to angiography portion. Only chest abdomen pelvis noncontrast images were obtained. Moderate to severe diffuse lung disease is present with multifocal opacities and septal thickening, likely edema or alveolar damage. Diffuse infection also possible. No drainable effusions. Trace right effusion is present. Coronary calcifications. Probable mild diffuse colonic wall thickening possibly colitis. Other findings above on this noncontrast study. Dictated by: Tin Munoz M.D. on 01/28/2025 at 16:32 Approved by: Tin Munoz M.D. on 01/28/2025 at 16:46
[2025-01-28 15:51] LABS: Reflexed Lactate in 2 Hours Y
[2025-01-28 16:02] LABS: Troponin I 0.099 ng/mL (0.01-0.034)
[2025-01-28] MEDS: FUROSEMIDE 40 MG/4 ML VIAL IV (16:11)
--- NOTE | 2025-01-28 16:11 | EKG_ITS ---
[place] [address] [address] [place] [id number] Test Date: 2025-01-28 Pat Name: [facility] Department: Room: Gender: Female [employer] Detective: DELVIN : 1945 Requested By: Order Number: [id number] Reading MD: Jaun Gee MD Measurements Intervals [place] Rate: 133 P: [place]: QRS: -49 QRSD: 190 T: 135 QT: 388 QTc: 577 Interpretive Statements Critical Test Result: Arrhythmia Wide QRS tachycardia with occasional atrial-paced complexes Left axis deviation Left bundle branch block Electronically Signed On 01-29-2025 7:26:48 PDT by Jaun Gee MD
[2025-01-28] MEDS: AMIODARONE 150 MG/100 ML PIGGYBACK 600 MG IV (16:15)
[2025-01-28] MEDS: NITROGLYCERIN 0.4 MG SL TAB SL (16:36)
[2025-01-28] MEDS: PANTOPRAZOLE 40 MG VIAL 80 MG IV (16:37)
[2025-01-28 16:42] LABS: Allen Test for ABG Passed? Positive; Blood Gas Collection Site Left Radial; Blood Gas Mode Bi-Level Ventilation; Delivery System BiPAP; HCO3 ABG 15 mmol/L (23-27); Oxygen Saturation ABG 98 % (95-100); PCO2 ABG 45.5 mmHg (35-45); PEEP 6; PO2 ABG 130 mmHg (80-100); Pressure Support 14; Respiratory Rate 14; TCO2 ABG 15 mmol/L (23-27); pH ABG 7.13 (7.35-7.45)
[2025-01-28] MEDS: MAGNESIUM SULFATE 1 GM/2 ML VIAL 2 GM IV (16:55)
[2025-01-28] MEDS: PIPERACILLIN/TAZO 4.5 GM in SODIUM CHLORIDE 0.9% 100 ML IV (16:56)
--- NOTE | 2025-01-28 16:56 | EKG_ITS ---
[place] [address] [place] [address] Test Date: 2025-01-28 Pat Name: [facility] Department: [facility] Room: Gender: Female Career Development Specialist: DON : 1945 Requested By: Order Number: [id number] Reading MD: Jaun Gee MD Measurements Intervals [place] Rate: 74 P: 24 RI: 222 QRS: -52 QRSD: 154 T: 159 QT: 408 QTc: 452 Interpretive Statements NO SIGNIFICANT CHANGE FROM PRIOR TRACING Sinus rhythm with 1st degree AV block Left axis deviation Left bundle branch block Electronically Signed On 01-28-2025 17:48:25 PDT by Jaun Gee MD
--- NOTE | 2025-01-28 17:18 | PC.NURSE ---
While pt was in CT, pt became anxious and stated having difficulty breathing. Pt's position of comfort was sitting straight up on the CT table. ED RN's to CT to assess pt, pt was desating and had a new onset audible wheezing. Provider to CT to assess pt. Pt was placed on NRB with minimal improvment with sats going up to 82% on NRB. Rapid was called to CT. At that time it was decided to return pt to pt's room in ED and place pt on BiPAP. Upon arrival to ED room, pt was placed on BiPAP, given lasix, and vu cath was placed. Pt also had repeat labs, EKG, and medications given (see MAR). Pt had improvment with BiPAP and is currently denying pain at this time. Pt's family at bedside and pt gave permission to update family.
--- NOTE | 2025-01-28 17:25 | PM.CALLCOV.1 ---
Call Coverage Note Note Narrative of Care Provided: 80 F with PMH of CAD (NSTEMI in our ER 2021) who presented with chest pain, nausea, diarrhea. Chest pain started suddenly at 11am. She had a rapid response in CT with prolonged hypoxia now improved with bipap. She also had a wide complex rhythm / tachycardia and received amiodarone. Troponin 0.056 > 0.099 on repeat. ProBNP 2330. ABG done after BiPAP shows pH 7.13 with PCO of 45.5. CT scan with diffuse infiltrates possible edema vs infection. Recommend transfer for higher level of care at this time given concern for probable NSTEMI on presentation. Recommend repeat troponin, ABG and consider cardiology consult over the phone. If improving troponin and acidosis can admit likely admit here for further management.
[2025-01-28 18:03] LABS: Allen Test for ABG Passed? Positive; Blood Gas Collection Site Left Radial; Delivery System BiPAP; HCO3 ABG 17 mmol/L (23-27); Oxygen Saturation ABG 99 % (95-100); PCO2 ABG 38.5 mmHg (35-45); PO2 ABG 146 mmHg (80-100); TCO2 ABG 16 mmol/L (23-27); pH ABG 7.24 (7.35-7.45)
[2025-01-28 18:15] LABS: Troponin I 0.207 ng/mL (0.01-0.034)
[2025-01-28] MEDS: fentaNYL 100 MCG/2 ML INJ 50 MCG IV (18:52)
[2025-01-28] MEDS: HEPARIN 5,000 UNIT/ML VIAL 4000 UNIT IV (20:28)
[2025-01-28] MEDS: HEPARIN DRIP 25,000 UNIT/500 ML IV.SOLN 15.241 UNIT IV (20:29)
[2025-01-28 20:32] LABS: INR 1.1 (0.9-1.3); Prothrombin Time 12.6 SECONDS (9.4-12.5)
[2025-01-29] VITALS (7 sets, daily range): BP systolic 113–128; BP diastolic 66–76; PULSE 64–68; RESP 17–26; O2SAT 95–97
== END 2025-01-29 01:39 | disposition short-term general hospital (02) ==
PROVIDERS: Emergency Medicine; Emergency Provider Emergency Medicine; PCP Physician Assistant
DX: I50.9 Heart failure, unspecified (principal); I21.4 Non-ST elevation (NSTEMI) myocardial infarction; J18.9 Pneumonia, unspecified organism; I10 Essential (primary) hypertension; R10.13 Epigastric pain; R19.7 Diarrhea, unspecified; Z79.01 Long term (current) use of anticoagulants
CPT/HCPCS: 36415; 36600; 71045; 71250; 74176; 80053; 82550; 82805; 83605; 83690; 83735; 83880; 84145; 84484; 85025; 85610; 85730; 87040; 87507; 93005; 93010; 94660; 96365; 96366; 96367; 96375; 99285; 99291; J0282; J1644; J1938; J2270; J2470; J2543; J3010; J3475